=== PATIENT | male | born 1950 | race Caucasian/White ===

== ENCOUNTER 2020-09-27 18:27 | Outpatient (REF) | payer MEDICARE, SELFPAY ==
[2020-10-01 03:11] LABS: Patient Race White; SARS-CoV-2 RNA Undetected (Undetected); SARS-CoV-2 Specimen Source Nasal
== END 2020-09-27 18:47 ==
LOC: NCHCN 18:27
PROVIDERS: PCP Internal Medicine; Visit Provider Internal Medicine
DX: Z20.828 Contact with and (suspected) exposure to other viral communicable diseases (principal)
CPT/HCPCS: U0003

== ENCOUNTER 2021-08-11 13:37 | Outpatient (REF) | payer MEDICARE, SELFPAY ==
[2021-08-12 10:10] LABS: Hepatitis C Ab w Rflx HCV PCR Negative (Negative)
[2021-08-12 10:34] LABS: HIV-1/2 Ag & Ab Screen Negative (Negative)
== END 2021-08-11 13:38 | disposition home or self-care (01) ==
LOC: NCHCN 13:37
PROVIDERS: PCP Internal Medicine; Visit Provider Family Medicine
DX: Z11.3 Encounter for screening for infections with a predominantly sexual mode of transmission (principal); Z00.00 Encounter for general adult medical examination without abnormal findings; Z11.59 Encounter for screening for other viral diseases
CPT/HCPCS: 86803; 87389

== ENCOUNTER 2021-09-05 09:35 | Outpatient (REF) | payer MEDICARE, BC, SELFPAY ==
[2021-09-05 14:36] LABS: Anion Gap 7.5 mmol/L (3-11); BUN 15 mg/dL (7-18); CO2 28.5 mmol/L (21.0-32.0); CREATININE 0.9 mg/dL (0.70-1.30); Calcium 9.1 mg/dL (8.5-10.1); Calculated LDL 158 mg/dL (<100); Chloride 103 mmol/L (98-107); Cholesterol 228 mg/dL (<200); Glucose 298 mg/dL (74-106); HDL Cholesterol 45 mg/dL (40-60); Potassium 4.3 mmol/L (3.5-5.1); Sodium 139 mmol/L (136-145); Triglyceride 129 mg/dL (<150)
== END 2021-09-05 09:36 | disposition home or self-care (01) ==
LOC: NCHCN 09:35
PROVIDERS: PCP Internal Medicine; Visit Provider Family Medicine
DX: E11.9 Type 2 diabetes mellitus without complications (principal); Z00.00 Encounter for general adult medical examination without abnormal findings
CPT/HCPCS: 80048; 80061

== ENCOUNTER 2021-09-15 14:12 | Outpatient (REF) | payer MEDICARE, BC, SELFPAY ==
[2021-09-15 22:54] LABS: COMMENT (LAB VIEW ONLY) 143.12 mg/dL; Microalb ug/mg Crea 116.3 ug/mg Cr
== END 2021-09-15 14:13 | disposition home or self-care (01) ==
LOC: NCHCN 14:12
PROVIDERS: PCP Internal Medicine; Visit Provider Family Medicine
DX: E11.9 Type 2 diabetes mellitus without complications (principal)
CPT/HCPCS: 82043; 82570

== ENCOUNTER 2022-04-22 14:47 | Outpatient (REF) | payer MEDICARE, BC, SELFPAY ==
--- NOTE | 2022-04-22 09:30 | SKI_PTH ---
PATIENT: Brice Lara LOC: [facility] U#:[id number] AGE/SX: 72/M ROOM: RE04/22/[address]: Case Perkins : 1950 BED: DIS: 04/22/2022 SPEC #: [id number] RECD: 04/22/22 17:12 STATUS: [place] REQ #: [id number] CLARISSA: 04/22/22 09:[address]: Case Perkins DEPT: Surgical Specimen RECD BY: Jyotsna Mukherjee ENTERED: 04/22/22 17:12 SP TYPE: CHERRY BOYD DR: Yohan Darling Tissues: 1 - SKIN BIOPSY(SHAVE/PUNCH) Procedures: SKIN LEVEL 4 Comments: [id number]
== END 2022-04-22 14:48 | disposition home or self-care (01) ==
LOC: LBN 14:47
PROVIDERS: PCP Internal Medicine; Visit Provider Family Medicine
DX: L82.1 Other seborrheic keratosis (principal)
CPT/HCPCS: 88305

== ENCOUNTER 2022-04-29 11:21 | Outpatient (REF) | payer MEDICARE, BC, SELFPAY ==
[2022-04-29 14:22] LABS: BUN 17 mg/dL (7-18); CREATININE 0.8 mg/dL (0.70-1.30); Calcium 9.1 mg/dL (8.5-10.1); Calculated LDL 75 mg/dL (<100); Chloride 105 mmol/L (98-107); Cholesterol 141 mg/dL (<200); Glucose 205 mg/dL (74-106); HDL Cholesterol 47 mg/dL (40-60); Potassium 4.6 mmol/L (3.5-5.1); Sodium 143 mmol/L (136-145); Triglyceride 97 mg/dL (<150)
== END 2022-04-29 11:22 | disposition home or self-care (01) ==
LOC: NCHCN 11:21
PROVIDERS: PCP Internal Medicine; Visit Provider Family Medicine
DX: E11.9 Type 2 diabetes mellitus without complications (principal)
CPT/HCPCS: 80048; 80061

== ENCOUNTER 2022-06-22 15:05 | Outpatient (REF) | payer MEDICARE, BC, SELFPAY ==
[2022-06-23 10:20] LABS: Lyme Ab w Rflx to Lyme Confirm Negative (Negative)
[2022-06-24 22:49] LABS: Anaplasma phagocytophilum Negative (Negative); B. miyamotoi PCR Negative (Negative); Babesia divergens/MO-1 Negative (Negative); Babesia duncani Negative (Negative); Babesia microti Negative (Negative); Ehrlichia chaffeensis Negative (Negative); Ehrlichia ewingii/canis Negative (Negative); Ehrlichia muris eauclairensis Negative (Negative)
== END 2022-06-22 15:06 | disposition home or self-care (01) ==
LOC: NCHCN 15:05
PROVIDERS: PCP Internal Medicine; Visit Provider Family Medicine
DX: Z20.9 Contact with and (suspected) exposure to unspecified communicable disease (principal)
CPT/HCPCS: 87798; 86618

== ENCOUNTER 2023-10-13 10:27 | Outpatient (REF) | payer MEDICARE, BC, SELFPAY ==
[2023-10-13 21:57] LABS: Abs Immature Grans 0.03 10^3/uL (0.0-0.06); Absolute Basophil Count 0.03 10^3/uL (0.0-0.2); Absolute Eosinophil Count 0.11 10^3/uL (0.0-0.7); Absolute Lymphocyte Count 1.82 10^3/uL (1.2-3.4); Absolute Monocyte Count 0.73 10^3/uL (0.1-0.8); Absolute Neutrophil Count 6.39 10^3/uL (1.2-6.7); Basophils % 0.3; Eosinophils % 1.2; HCT 47.1 % (40.0-50.0); HGB 15.3 g/dL (13.5-17.5); Immature Grans % 0.3; MCHC 32.5 % (32.0-36.0); MCV 89 fL (80-95); MPV 10.5 fL (8.0-11.0); Neutrophils % 70.2; Platelet Count 260 10^3/uL (130-400); RBC 5.27 10^6/uL (4.36-5.78); RDW 12.8 % (11.8-14.1); WBC 9.11 10^3/uL (4.4-10.8)
[2023-10-13 22:13] LABS: ALT 27 U/L (16-63); AST 12 U/L (15-37); Albumin 3.8 g/dL (3.4-5.0); Alkaline Phosphatase 56 U/L (46-116); BUN 17 mg/dL (7-18); Bilirubin, Total 1.5 mg/dL (0.2-1.0); CREATININE 0.9 mg/dL (0.70-1.30); Calcium 9.8 mg/dL (8.5-10.1); Chloride 104 mmol/L (98-107); Estimated GFR 91.31 (mL/min/1.73m2); Glucose 126 mg/dL (74-106); Potassium 4.4 mmol/L (3.5-5.1); Sodium 140 mmol/L (136-145); Total Protein 7.2 g/dL (6.4-8.2)
[2023-10-13 22:18] LABS: ESR 15 mm/hr (0-20)
[2023-10-13 22:22] LABS: Bacteria Rare HPF (Negative); C & S Indicated? Yes; Casts Negative LPF (Negative); Crystals Negative HPF (Negative); Epithelial Cells Rare HPF (Negative); Mucus Negative (Negative)
== END 2023-10-13 10:28 | disposition home or self-care (01) ==
LOC: NCHCN 10:27
PROVIDERS: PCP Internal Medicine; Visit Provider Family Medicine
DX: I10 Essential (primary) hypertension (principal); Z87.448 Personal history of other diseases of urinary system
CPT/HCPCS: 80053; 85652; 81015; 85025; 87086

== ENCOUNTER → 2023-10-21 01:24 | Outpatient (CLI) | payer MEDICARE, BC, SELFPAY ==
--- NOTE | 2023-10-21 | DI.US_ITS ---
Exam(s) US RENAL EXAM: US RENAL CLINICAL HISTORY: H/O HEMATURIA, Z87.448. TECHNIQUE: Estes scale, color and spectral Doppler were used. COMPARISON: CT ABD/PELVIS WO W CONTRAST from 07/21/2012 FINDINGS: Renal size in cm: Right: 14.2. Left: 13.2. Echogenicity: Normal. Hydronephrosis: No. Cyst or mass: There is a 5 x 4.6 x 5.0 cm cyst in the superior pole of the right kidney. This was pr esent on the prior CT scan from 2011. There are simple cysts seen in the left kidney. The largest m easures 4.3 x 2.1 x 3.6 cm. These were present on the prior examinations from 2011. No follow-up is recommended. Nephrolithiasis: No. Other findings: None. Bladder:Normal. There is again seen a right sided urinary bladder valve reticulin. Prevoid the bladd er diverticulum contained 156 cc. Postvoid bladder diverticulum contained 136 cc. Ureteral jets: Right: Not visualized on the current examination. Left: Not visualized on the current examination. Prevoid vol:750 cc Postvoid vol:343 cc Prostate: 70 cc Renal color flow: Symmetric and within normal limits. IMPRESSION: 1. Persistent simple bilateral renal cysts. No follow-up is recommended. 2. Large right-sided bladder diverticulum is again seen. 3. Large postvoid urinary bladder volume. 4. Enlarged prostate gland. DATA REPOSITORY:
== END ==
PROVIDERS: PCP Internal Medicine; Visit Provider Family Medicine
DX: N28.1 Cyst of kidney, acquired (principal); N32.3 Diverticulum of bladder
CPT/HCPCS: 76770

== ENCOUNTER → 2023-11-09 15:02 | Outpatient (BNVA) | payer MEDICARE, BC, SELFPAY | PROVIDERS: PCP Internal Medicine; Referring Provider Internal Medicine; Visit Provider Urology | DX: R31.0 Gross hematuria (principal) | CPT/HCPCS: 81002; 99205 ==

== ENCOUNTER 2023-11-09 17:28 | Outpatient (REF) | payer MEDICARE, BC, SELFPAY ==
--- NOTE | 2023-11-09 16:00 | PAPNONF_PTH ---
PATIENT: Brice Lara LOC: [facility] U#:[id number] AGE/SX: 73/M ROOM: RE11/09/[address]: Milan Mcmahan MD : 1950 BED: DIS: 11/09/2023 SPEC #: [id number] RECD: 11/09/23 18:15 STATUS: [place] REQ #: [id number] CLARISSA: 11/09/23 16:[address]: Milan Mcmahan DEPT: [facility] Cytology RECD BY: Jyotsna Mukherjee ENTERED: 11/09/23 18:16 SP TYPE: LISET BOYD DR: Yohan Darling Tissues: 1 - BODY FLUID CYTO(SPUTUM/URINE)[facility] Procedures: BODY FLUID CYTO(URINE/SPUTUM) Comments: [id number] (TV = 100 ml) (REFRIGERATED) (30 ml CYTOLYT ADDED TO 50 ml URINE IN 2 CONTAINERS)
== END 2023-11-09 17:29 | disposition home or self-care (01) ==
LOC: LBN 17:28
PROVIDERS: PCP Internal Medicine; Visit Provider Urology
DX: R71.8 Other abnormality of red blood cells (principal)
CPT/HCPCS: 81003; 88104

== ENCOUNTER 2023-12-30 07:23 | Day surgery (SDC) | payer MEDICARE, BC, SELFPAY ==
[2023-12-30] VITALS (7 sets, daily range): BP systolic 127–145; BP diastolic 73–78; PULSE 50–58; RESP 16–17; TEMP 36.1–36.6; O2SAT 96–99; BMI 26.3
[2023-12-30] MEDS: Lactated Ringers 1,000 ML 80 ML IV (07:55)
--- NOTE | 2023-12-30 08:08 | W.PM.HP.N ---
Date of service: 12/30/23 Time of Service: 08:09 Assessment and Plan Assessment and plan (1) Hematuria: Assessment and plan: We will move forward with cystoscopy and bilateral retrograde pyelogram. If we find any suspicious areas in the bladder, we will be prepared to do a transurethral resection. Qualifiers: Hematuria type: gross Qualified Code(s): R31.0 - Gross hematuria History of Present Illness History of Present Illness Chief Complaint: Gross hematuria Narrative: This is a 73-year-old gentleman who has a history of gross painless hematuria. He was evaluated with a renal ultrasound which showed no significant upper tract disease. He does have a fairly large bladder diverticulum on the right side. His gross hematuria has resolved but he has had persistent microscopic hematuria. He presents now for cystoscopy with bilateral retrograde pyelogram to complete his hematuria workup. Review of Systems Narrative: No fevers or chills No vision change or dysphasia Hx diabetes. No thyroid dysfunction Sleep apnea - stopped using CPAP. No shortness of breath, cough or hemoptysis No chest pain or palpitations No nausea, vomiting, hepatitis, ulcers, jaundice No seizures or strokes. Possible diabetic neuropathy No bleeding disorders or anemia No gout PFSH All Active Problems Diabetic neuropathy (Acute) Sleep apnea (Acute) Hypertension (Chronic) Diabetes mellitus (Chronic) Hyperlipidemia (Acute) Medical History Hematuria Diffuse capillary hemangioma Allergic rhinitis Surgical History Repair of umbilical hernia Colonoscopy - MAC (06/02/17) Social History Smoking/Tobacco Use Status: Never Smoking risk assessment performed?: Yes Alcohol Intake: current Alcohol Intake frequency: a few times a week Alcohol type: wine Drug use: Never Substance use type: does not use Details: alcohol: t-7 Housing: house Do you feel safe at home: Yes Do you feel safe in your relationship?: Yes Additional Social history: unable to assess privately Meds Allergies and Home Medications Allergies Allergy/AdvReac Type Severity Reaction Status Date / Time No Known Allergies Allergy Verified 12/30/23 07:44 Home Medications Medication Instructions Recorded Confirmed Type atorvastatin 20 mg tablet 20 mg PO DAILY 06/10/22 12/30/23 History lisinopril 10 mg tablet 10 mg PO DAILY 06/10/22 12/30/23 History metformin 1,000 mg tablet 1,000 mg PO BID 06/10/22 12/30/23 History empagliflozin 10 mg tablet 10 mg PO DAILY 10/22/23 12/28/23 History (Jardiance) sildenafil 100 mg tablet 100 mg PO DAILY PRN 10/22/23 12/30/23 History Exam Const General: cooperative and comfortable Neck Neck: supple Resp Effort & Inspection: normal respiratory effort Auscultation: clear to auscultation bilaterally Cardio Rate: regular rate Rhythm: regular rhythm GI Palpation: soft Neuro General: patient alert, patient awake and patient oriented x3 Results Last Vital Signs Temp 36.1 C L 12/30/23 07:47 Pulse 58 L 12/30/23 07:47 Resp 16 12/30/23 07:47 BP 127/78 12/30/23 07:47 Pulse Ox 97 12/30/23 07:47 Time Spent Time spent with Patient: <40 minutes Time was spent: other
--- NOTE | 2023-12-30 08:19 | W.ANESPRE ---
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 Milan Mcmahan MD Meds Allergies and Home Medications Allergies Allergy/AdvReac Type Severity Reaction Status Date / Time No Known Allergies Allergy Verified 12/30/23 07:44 Home Medication Medication Instructions Recorded atorvastatin 20 mg tablet 20 mg PO DAILY 06/10/22 lisinopril 10 mg tablet 10 mg PO DAILY 06/10/22 metformin 1,000 mg tablet 1,000 mg PO BID 06/10/22 empagliflozin 10 mg tablet 10 mg PO DAILY 10/22/23 (Jardiance) sildenafil 100 mg tablet 100 mg PO DAILY PRN 10/22/23 Current Visit Medications: Current Medications Generic Name Dose Route Start Last Admin Trade Name Freq PRN Reason Stop Dose Admin Ringer's Solution 1,000 mls @ 80 mls/hr 12/30/23 06:00 IV 12/30/23 23:59 INFUSION NIKOS Cefazolin Sodium/Dextrose 2 gm in 50 mls @ 100 mls/hr 12/30/23 06:00 Ancef Duplex IVPB 12/30/23 23:59 PREOP NIKOS IV Miscellaneous Supplies 1 each 12/30/23 06:00 Iv Access IV 12/30/23 23:59 DIRECTED NIKOS Sodium Chloride 0 ml 12/30/23 06:00 Normal Saline Flush 10 Ml Syr IV 12/30/23 23:59 PRN PRN Sodium Chloride 0 ml 12/30/23 06:00 Normal Saline 10 Ml Vial IJ 12/30/23 23:59 DIRECTED PRN Sterile Water 0 ml 12/30/23 06:00 Water,Injection,Sterile 10 Ml Vial IJ 12/30/23 23:59 DIRECTED PRN PFSH Active Problems Active Problems: Problem Status Onset Code Diabetic neuropathy E11.40 Sleep apnea G47.30 Hypertension I10 Diabetes mellitus E11.9 Hyperlipidemia E78.5 Medical History Medical History Hematuria Diffuse capillary hemangioma Allergic rhinitis Medical History Comments:: pt. reports being very sleepy after colonoscopy Surgical History Surgical History Repair of umbilical hernia Colonoscopy - MAC (06/02/17) Tobacco Smoking/Tobacco Use Status: Never Alcohol Alcohol Intake: current Alcohol intake frequency: a few times a week Alcohol type: wine Substance Use Substance use: Never Substance use type: does not use Details: alcohol: t-7 Vital Signs and Lab Results Vital Signs Most Recent Vital Signs in EMR: Most Recent Vital Signs Temp Pulse Resp BP Pulse Ox 36.1 C L 58 L 16 127/78 97 12/30/23 07:47 12/30/23 07:47 12/30/23 07:47 12/30/23 07:47 12/30/23 07:47 Point of Care Results Point of Care Results: Finger Stick Blood Glucose 154 12/30/23 08:09 Lab Results Blood Type / Crossmatch: No Data to Display Complete Blood Count: No Data to Display Complete Metabolic Panel: No Data to Display Liver Function Panel: No Data to Display Coagulation Panel: No Data to Display Cardiac Panel: No Data to Display Arterial Blood Gas: No Data to Display Venous Blood Gas: No Data to Display Pancreas Panel: No Data to Display Thyroid Panel: No Data to Display Infectious Disease: No Data to Display Blood Cultures: No Data to Display Toxicology Panel: No Data to Display Anesthesia Assessment and Plan Anesthesia History Personal History: Delayed Emergence Family History: No Family History of Anesthesia Complications Exercise Tolerance Exercise Tolerance: Metabolic Equivalents>4 Pertinent Negatives Pertinent Negatives: No Symptoms of GERD, No Major Cardiovascular Symptoms or Complaints, No Major Pulmonary Symptoms or Complaints and No History of CVA/TIA Cardiac & Pulmonary Exam Cardiac Exam: Normal S1/S2 Heart Sounds Pulmonary Exam: Clear Bilateral Breath Sounds Implantable Cardiac Device Does patient have a Pacemaker or an ICD?: No Airway Exam Known Difficult Airway: No Mallampati Class: 2 Mouth Opening: Normal (> 3cm) Thyromental Distance: Greater than 3 cm Neck Range of Motion: Full ROM Neck Circumference: Normal Teeth Condition: Loose or Chipped (front left tooth loose ) ASA Classification ASA Score: ASA 2 Emergency Case?: No NPO Status NPO Status: NPO Clears >2 hours, Solids >8 hours Anesthesia Plan Resuscitation Status: Full Code Anesthesia Technique: General Anesthesia Airway Planned: Natural Airway Monitors Used: Standard Monitors
[2023-12-30] MEDS: ceFAZolin 2 GM/50 ML BAG IVPB (09:04)
[2023-12-30] MEDS: Lidocaine 2% Jelly 6 ML SYR (09:07)
[2023-12-30] MEDS: Omnipaque 300 MG/ML 50 ML BTL (09:15)
--- NOTE | 2023-12-30 09:21 | PAPNONF_PTH ---
PATIENT: Brice Lara LOC: [facility] U#:[id number] AGE/SX: 73/M ROOM: RE12/30/[address]: Milan Mcmahan MD : 1950 BED: DIS: 12/30/2023 SPEC #: [id number] RECD: 12/30/23 12:49 STATUS: [place] REMari #: [id number] CLARISSA: 12/30/23 09:[address]: Milan Mcmahan DEPT: [facility] Cytology RECD BY: Jyotsna Mukherjee ENTERED: 12/30/23 12:50 SP TYPE: LISET BOYD DR: Case Perkins Tissues: 1 - BODY FLUID CYTO(SPUTUM/URINE)[facility] Procedures: BODY FLUID CYTO(URINE/SPUTUM) Comments: [id number] (TV = 55 ml, 30 ml CYTOLYT ADDED) (REFRIGERATED)
--- NOTE | 2023-12-30 09:33 | DI.RAD_ITS ---
Exam(s) XR RETROGRADE IN OR EXAM: XR RETROGRADE IN OR CLINICAL HISTORY: HEMATURIA TECHNIQUE: 2D and realtime digital imaging was performed. CONTRAST MATERIAL: Refer to procedure report. COMPARISON: US US RENAL from 10/21/2023 FINDINGS: Fluoroscopy was provided for Dr. Mcmahan during the performance of a retrograde evaluation of the tomas l collecting system. Please refer to the procedure report for complete details. Ka,r=4.88 mGy IMPRESSION: RADIATION DOSE DELIVERED:
--- NOTE | 2023-12-30 09:33 | W.PM.DSUDISC ---
Date of service: 12/30/23 Time of Service: 09:33 Discharge Plan Disposition Patient Disposition: Home Discharge Details Reason For Visit: cystoscopy Attending Provider: Milan Mcmahan Primary Care Provider: Case Perkins Home Meds and New Rx's Prescriptions: No Action atorvastatin 20 mg tablet 20 mg PO DAILY metformin 1,000 mg tablet 1,000 mg PO BID lisinopril 10 mg tablet 10 mg PO DAILY Jardiance 10 mg tablet 10 mg PO DAILY sildenafil 100 mg tablet 100 mg PO DAILY PRN Rx Instructions: administer 30 minutes to 4 hours before activity Discharge Instructions Additional Instructions: followup 1 to 2 weeks to discuss cytology results (can be by phone if easier for patient) Discharge Orders Discharge Orders: Discharge Order (Routine); Ordered 12/30/23 Ordered By: Milan Mcmahan DS: Diagnosis Discharge Diagnosis (1) Hematuria:
--- NOTE | 2023-12-30 09:36 | W.PM.OP ---
Date of service: 12/30/23 Time of Service: 09:36 Operative Note Operative Note DATE OF PROCEDURE: 12/30/23 PRE-OP DIAGNOSIS: Hematuria POST-OP DIAGNOSIS: same Prostatic enlargement PROCEDURE: cystoscopy with bilateral retrograde pyelogram SURGEON: Milan Mcmahan ANESTHESIA TYPE: Local By Surgeon and General:No Airway Refer to Anesthesia Record ESTIMATED BLOOD LOSS: 5 PATHOLOGY: other (urine for cytology) COMPLICATIONS: None Patient was transported to: PACU Patient's condition: stable Implants: none Indications: This is a 73-year-old gentleman who has had episodes of gross painless hematuria previously. He believes the episodes are related to physical activity. He had a renal ultrasound which showed normal upper tracts. A large right-sided bladder diverticulum was identified. He presents now for cystoscopy and bilateral retrograde pyelograms. Findings: trilobar prostatic enlargement heavily trabeculated bladder unable to negotiate scope into right sided diverticulum Procedure Description: The patient was given preoperative antibiotics and brought to the operating room on 12/30/2023. After successful induction of general anesthesia, he was placed in the dorsal lithotomy position. His genitalia was prepped and draped. 2% Xylocaine jelly was instilled into the urethra to act as a local anesthetic. 22 Bah[place]ian cystoscope was passed through the urethra into the bladder. We were initially unable to pass the scope, so we dilated the urethral meatus up to 24 [place]ian before introducing the cystoscope. The urethra and bladder were inspected with a 30 degree lens. The pendulous, bulbar and membranous urethra was all appeared normal with no strictures. The prostatic urethra showed trilobar enlargement with prominent blood vessels present. No active bleeding was seen. The bladder neck was entered and the bladder mucosa was inspected. I was able to visualize both ureteral orifices and cannulate the orifice with a 5 Bahamian access catheter. Retrograde pyelograms were obtained by injecting Omnipaque through the access catheter under fluoroscopic guidance. Distal J hooking of the ureters was identified but no filling defects are seen in the ureters or collecting systems. Both sides drained promptly on a 5-minute drainage film. The remainder the bladder was inspected and it appeared heavily trabeculated with multiple small diverticuli and cellules. The mouth to the large diverticulum was identified, but I was unable to pass my cystoscope into the diverticulum completely to visualize all the mucosa. I then obtained a urine cytology by washing the bladder and diverticulum with saline and collecting the fluid sample. The sample was sent to pathology. The bladder was reinspected with a 70 degree lens. This inspection confirmed the absence of papillary or nodular lesions within the bladder. The bladder was emptied and the cystoscope was withdrawn. Assuming that the urinary cytology is normal, we will expect that his hematuria is related to his prostate and he might actually benefit from a 5 alpha reductase inhibitor to decrease the prostate volume.
--- NOTE | 2023-12-30 09:56 | W.ANESPOSTOP ---
Postoperative Evaluation Date, Time and Location Date Performed: 12/30/23 Time Performed: 09:56 Patient Location: PACU Vital Signs Most Recent Imported Vital Signs: Most Recent Vital Signs Temp Pulse Resp BP Pulse Ox 36.6 C 55 L 16 145/75 H 98 12/30/23 09:49 12/30/23 09:49 12/30/23 09:49 12/30/23 09:49 12/30/23 09:49 Pain Score Most Recent Pain Score: Most Recent Pain Score Pain Level 0 12/30/23 09:49 Assessment Mental Status: Awake (Alert & Oriented to Patient Baseline) Airway and Respiratory Function: Patent airway with normal (patient baseline) respiratory exam Cardiovascular Function: Hemodynamically Stable Hydration Status: Adequately Hydrated Nausea & Vomiting: No Nausea or Vomiting Pain: Pt. Denies Any Pain Peripheral Nerve Block: Patient did not receive a nerve block
--- NOTE | 2023-12-30 10:46 | W.ANESPOSTOP ---
Postoperative Evaluation Date, Time and Location Date Performed: 12/30/23 Time Performed: 10:40 Vital Signs Most Recent Imported Vital Signs: Most Recent Vital Signs Temp Pulse Resp BP Pulse Ox 36.5 C 50 L 16 130/77 96 12/30/23 10:06 12/30/23 10:06 12/30/23 10:06 12/30/23 10:06 12/30/23 10:06 Most Recent Vital Signs Temp Pulse Resp BP Pulse Ox 36.6 C 55 L 16 145/75 H 98 12/30/23 09:49 12/30/23 09:49 12/30/23 09:49 12/30/23 09:49 12/30/23 09:49 Pain Score Most Recent Pain Score: Most Recent Pain Score Pain Level 1 12/30/23 10:06 Assessment Mental Status: Awake (Alert & Oriented to Patient Baseline) Airway and Respiratory Function: Patent airway with normal (patient baseline) respiratory exam Cardiovascular Function: Hemodynamically Stable Hydration Status: Adequately Hydrated Nausea & Vomiting: No Nausea or Vomiting Pain: Pt. Denies Any Pain Peripheral Nerve Block: Patient did not receive a nerve block
[2023-12-30] MEDS: Phenazopyridine 200 MG TAB PO (10:48)
== END 2023-12-30 11:12 | disposition home or self-care (01) ==
PROVIDERS: PCP Family Medicine; Visit Provider Urology
PROC: (CPT 74450; principal; 2023-12-30 08:30)
DX: R31.0 Gross hematuria (principal); N32.3 Diverticulum of bladder; N40.0 Benign prostatic hyperplasia without lower urinary tract symptoms; N32.89 Other specified disorders of bladder
CPT/HCPCS: 52005; 74420; 88104; J0690; J1100; J1885; J2001; J2405; J2704; Q9967

== ENCOUNTER 2024-01-02 03:44 | Emergency (ER) | payer MEDICARE, BC, SELFPAY ==
[2024-01-02 03:49] VITALS: BP 164/94; PULSE 75; RESP 18; TEMP 36.4; O2SAT 98
--- NOTE | 2024-01-02 03:59 | W.ED.GENAD ---
Discharge Plan Disposition Patient Disposition: Home Condition: Good Discharge Details Chief Complaint: Urinary Clinical Impression: Acute urinary obstruction, Hematuria Primary Care Provider: Case Perkins ED Provider: Justo Vernon Home Meds and New Rx's Prescriptions: No Action atorvastatin 20 mg tablet 20 mg PO DAILY metformin 1,000 mg tablet 1,000 mg PO BID lisinopril 10 mg tablet 10 mg PO DAILY Jardiance 10 mg tablet 10 mg PO DAILY Discharge Instructions Instructions: Carlos Catheter Placement and Care (ED) Additional Instructions: Please leave the Carlos catheter in until you are able to follow-up closely with Dr. Mcmahan. Please stay well-hydrated. We have placed a referral with Dr. Mcmahan's office for close follow-up. If you notice any worsening of your symptoms, or any new symptoms such as vomiting, diarrhea, fever, chills, shortness of breath, chest pain, numbness, weakness, or fainting , please return immediately to the emergency department for reevaluation. Please follow up with your primary care provider as soon as possible for reassessment and reevaluation. As always, it was a pleasure participating in your medical care today. Referrals: Milan Mcmahan MD [ [facility]FF PHYSICIAN] - [facility] General Date/Time Provider Initiated Documentation: 01/02/24 03:45. HPI Narrative: This is a pleasant 73-year-old male with a past medical history of hypertension, high cholesterol, type 1 diabetes, who presents today for evaluation of difficulty urinating. 3 days ago the patient had cystoscopy for hematuria. Diverticuli was noted, but no other significant abnormality. He did have notable vascularity on cystoscopy but no other abnormalities otherwise. Patient was discharged postprocedure, and he did well but began having some small clots and some mild hematuria after the fact. This continued until tonight where it notably worsened and he has not been able to urinate for the past 4 to 6 hours of any significant volume. He does pee frequently throughout the night, and has not been able to do this. He admits to sensation of significant suprapubic pressure. No other complaints at this time. Related Data Home Medications Medication Instructions Recorded Confirmed atorvastatin 20 mg tablet 20 mg PO DAILY 06/10/22 01/02/24 lisinopril 10 mg tablet 10 mg PO DAILY 06/10/22 01/02/24 metformin 1,000 mg tablet 1,000 mg PO BID 06/10/22 01/02/24 empagliflozin 10 mg tablet 10 mg PO DAILY 10/22/23 01/02/24 (Jardiance) Allergies Allergy/AdvReac Type Severity Reaction Status Date / Time No Known Allergies Allergy Verified 01/02/24 03:59 General Stated Complaint: Urinary SRINIVASAN: 3 Review of Systems All systems reviewed & are unremarkable except as noted in HPI and below Exam Narrative Exam Narrative: 1.Const: Well-nourished, Well-developed, appearing stated age 2.Eyes: PERRL, no conjunctival injection, and symmetrical lids. 3.ENT: Atraumatic external nose and ears. Moist MM. Neck: Symmetric, trachea midline, No thyromegaly. 4.CVS: +S1/S2, No murmurs or gallops. Peripheral pulses 2+ and equal in all extremities. Brisk capillary refill in all extremities. 5.RESP: Unlabored respiratory effort. Clear to auscultation bilaterally. No wheezes rales or rhonchi 6.GI: Soft, Nontender/Nondistended, No hepatosplenomegaly. No guarding or rebound. Mild suprapubic pressure and palpable volume of the bladder is noted. Small amount of blood at the urethral meatus. No penile or scrotal tenderness. 7.MSK: Normocephalic/Atraumatic, Extremities w/o deformity or ttp No cyanosis or clubbing, Normal movement of all extremities 8.Skin: Warm, Dry. No rashes or lesions. 9.Neuro: electrical superintendent II-XII grossly intact. Sensation grossly intact, no focal neurologic deficits. 10.Psych: (AAO) x3. Appropriate mood and affect Course Vital Signs Vital signs: Vital Signs Temperature 36.4 C L 01/02/24 03:49 Pulse 75 01/02/24 03:49 Respiratory Rate 18 01/02/24 03:49 Pulse Oximetry 98 01/02/24 03:49 Temperature 36.4 C L 01/02/24 03:49 Pulse 75 01/02/24 03:49 Respiratory Rate 18 01/02/24 03:49 Respiratory Effort Normal 01/02/24 03:55 Pulse Oximetry 98 01/02/24 03:49 Oxygen Delivery Method Room Air 01/02/24 03:49 Oxygen Flow Rate 0 01/02/24 03:49 Pain Level 5 01/02/24 03:49 Medical Decision Making This is a pleasant 73-year-old male with a past medical history of hypertension, high cholesterol, type 1 diabetes, who presents today for evaluation of difficulty urinating. 3 days ago the patient had cystoscopy for hematuria. Diverticuli was noted, but no other significant abnormality. He did have notable vascularity on cystoscopy but no other abnormalities otherwise. Patient was discharged postprocedure, and he did well but began having some small clots and some mild hematuria after the fact. This continued until tonight where it notably worsened and he has not been able to urinate for the past 4 to 6 hours of any significant volume. He does pee frequently throughout the night, and has not been able to do this. He admits to sensation of significant suprapubic pressure. No other complaints at this time. Exam demonstrates well-appearing male, mild hypertension. Palpable bladder. Concern for obstruction secondary to clot on the prostate. Discussed risk and benefits of Carlos catheter, patient is consented for catheterization. Will place catheter, monitor closely and reassess. 4:30 AM Carlos catheter was placed without complication by nursing staff. Patient tolerated this well. 650 cc were removed of blood-tinged urine. Catheter was clamped, after a pause, it was restarted again for a total of just under a liter of urinary output. Leg bag was placed for the patient. He had complete resolution of his pressure symptoms. We will leave the Carlos catheter in place for the patient. Education was performed for use of the Carlos catheter leg bag. Will place referral with Dr. Mcmahan for close follow-up this week. Discussed red flags for which to return. I have extensively reviewed the treatment plan and discharge instructions with the patient. I have addressed all patient concerns at this time. The patient was made aware of what symptoms to monitor for that would warrant a return to the emergency department. Discussed the plan with the patient, they demonstrate verbal understanding and agreement with our assessment and plan at this time. The documentation in this chart was dictated using [employer] dictation software. Please excuse any dictation errors. Quality:SDOH Health Related Social Needs: No Data to Display PFSH All Active Problems (Updated 01/02/24 @ 04:28 by Justo Vernon DO) Hematuria (Acute) Acute urinary obstruction (Acute) Diabetic neuropathy (Acute) Sleep apnea (Acute) Hypertension (Chronic) Diabetes mellitus (Chronic) Hyperlipidemia (Acute) Medical History Hematuria Diffuse capillary hemangioma Allergic rhinitis Surgical History Repair of umbilical hernia Colonoscopy - MAC (06/02/17) Social History Smoking/Tobacco Use Status: Never Smoking risk assessment performed?: Yes Alcohol Intake: current Alcohol Intake frequency: a few times a week Alcohol type: wine Drug use: Never Substance use type: does not use Details: alcohol: t-7 Housing: house Do you feel safe at home: Yes Do you feel safe in your relationship?: Yes Additional Social history: unable to assess privately
--- NOTE | 2024-01-02 04:27 | NUR.NOTE ---
Referral faxed to [facility] Urology to f/u week of 01/03/24 for hematuria, urinary obstruction, simon catheter in place.Nursing Note:
--- NOTE | 2024-01-02 04:47 | NUR.NOTE ---
PT was provided with leg bag and educated on care. PT verbalized understanding. PT states that he feels confident that he can care for the catheter at home. Nursing Note:
[2024-01-02 04:58] VITALS: BP 157/87; PULSE 74; RESP 18; O2SAT 95
== END 2024-01-02 05:07 | disposition home or self-care (01) ==
PROVIDERS: Emergency Provider Student in an Organized Health Care Education/Training Program; PCP Family Medicine
DX: T83.011A Breakdown (mechanical) of indwelling urethral catheter, initial encounter (principal); R31.9 Hematuria, unspecified; N13.9 Obstructive and reflux uropathy, unspecified; E11.9 Type 2 diabetes mellitus without complications; I10 Essential (primary) hypertension
CPT/HCPCS: 51702; 99283

== ENCOUNTER 2024-01-02 15:53 | Emergency (ER) | payer MEDICARE, BC, SELFPAY ==
[2024-01-02 15:58] VITALS: BP 146/88; PULSE 74; RESP 17; TEMP 37; O2SAT 96
[2024-01-02 16:53] LABS: Bilirubin Negative (Negative); Blood Large (Negative); Clarity Cloudy (Clear); Glucose >=1000 mg/dL (Negative); Ketones Negative (Negative); Leukocyte Esterase Negative (Negative); Nitrite Negative (Negative); Specific Gravity 1.015 (1.005-1.025); Urobilinogen 0.2 mg/dL (Up to 0.2); pH 6.5 (5-8)
[2024-01-02 17:00] VITALS: BP 146/88; PULSE 74; RESP 17; TEMP 37; O2SAT 96
[2024-01-02 17:13] LABS: RBC >50 HPF (0-2)
[2024-01-02 17:14] LABS: C & S Indicated? No
[2024-01-02 18:18] VITALS: BP 146/88; PULSE 74; RESP 17; TEMP 37; O2SAT 96
--- NOTE | 2024-01-02 18:24 | W.ED.GENAD ---
Discharge Plan Disposition Patient Disposition: Home Condition: Stable Discharge Details Clinical Impression: Malfunction of indwelling urinary catheter Primary Care Provider: Case Perkins ED Provider: Jyotsna hSerman Home Meds and New Rx's Prescriptions: Continued atorvastatin 20 mg tablet 20 mg PO DAILY metformin 1,000 mg tablet 1,000 mg PO BID lisinopril 10 mg tablet 10 mg PO DAILY Jardiance 10 mg tablet 10 mg PO DAILY Discharge Instructions Additional Instructions: Follow-up with Dr. Mcmahan as discussed to have Carlos catheter rechecked and potentially removed next week If there is decreased flow, you may try to irrigate as we showed you in the emergency department, this is unsuccessful, please return for reassessment or call Dr. Mcmahan Use your leg bag while you are up and about and your bed bag while you are supine or sleeping Please return with fever, chills, or she develop new or worsening complaints Referrals: Case Perkins MD [Primary Care Provider] - Milan Mcmahan MD [ [facility] STAFF PHYSICIAN] - HPI General Date/Time Provider Initiated Documentation: 01/02/24 15:58. HPI Narrative: This 73-year-old male presents with report of obstructed Carlos catheter. Urine flowing around the catheter. States he had a catheter placed this morning status post cystoscopy several days prior to arrival. Denies clots. Denies fever. Otherwise reportedly feels well. Related Data Home Medications Medication Instructions Recorded Confirmed atorvastatin 20 mg tablet 20 mg PO DAILY 06/10/22 01/02/24 lisinopril 10 mg tablet 10 mg PO DAILY 06/10/22 01/02/24 metformin 1,000 mg tablet 1,000 mg PO BID 06/10/22 01/02/24 empagliflozin 10 mg tablet 10 mg PO DAILY 10/22/23 01/02/24 (Jardiance) Allergies Allergy/AdvReac Type Severity Reaction Status Date / Time No Known Allergies Allergy Verified 01/02/24 03:59 General Stated Complaint: Urinary SRINIVASAN: 4 Course Vital Signs Vital signs: Vital Signs Temperature 37 C 01/02/24 15:58 Pulse 74 01/02/24 15:58 Respiratory Rate 17 01/02/24 15:58 Blood Pressure 146/88 H 01/02/24 15:58 Pulse Oximetry 96 01/02/24 15:58 Temperature 37 C 01/02/24 18:18 Temperature Source Temporal Artery Scan 01/02/24 17:00 Pulse 74 01/02/24 18:18 Respiratory Rate 17 01/02/24 18:18 Respiratory Effort Normal 01/02/24 17:00 Blood Pressure 146/88 H 01/02/24 18:18 Blood Pressure Position Sitting 01/02/24 17:00 Pulse Oximetry 96 01/02/24 18:18 Oxygen Delivery Method Room Air 01/02/24 17:00 Oxygen Flow Rate 0 01/02/24 15:58 Pain Level 0 01/02/24 17:00 Lab/Test Results Lab/Test Results: Laboratory Tests Range/Units 01/02/24 16:38 Urine Color (Yellow) Red Urine Clarity (Clear) Cloudy Urine pH (5-8) 6.5 Ur Specific [place] (1.005-1.025) 1.015 Urine Protein (Neg-Trace) mg/dL 30 H Urine Ketones (Negative) mg/dL Negative Urine Blood (Negative) Large H Urine Nitrite (Negative) Negative Urine Bilirubin (Negative) Negative Urine Urobilinogen (Up to 0.2) mg/dL 0.2 Ur Leukocyte Esterase (Negative) Negative Urine RBC (0-2) HPF >50 H Urine WBC Not Applicable Ur Epithelial Cells Not Applicable Urine Crystals Not Applicable Urine Bacteria Not Applicable Urine Mucus Not Applicable Ur Culture Indicated? No Urine Glucose (Negative) mg/dL >=1000 H Medical Decision Making 73-year-old male presents with obstructed Carlos catheter for evaluation, Carlos was placed this morning, patient is afebrile and nontoxic, urinalysis with blood, no visible clots pink discoloration, flowing freely after Carlos catheter care, ambulatory without any residual malfunction, request discharge home at this time, no evidence of infection, will follow-up with Dr. Mcmahan as scheduled appointment this week No abdominal tenderness, no CVA tenderness, afebrile and nontoxic alert and oriented x 4, return precautions reviewed and patient expressed understanding Quality:SDOH Health Related Social Needs: No Data to Display PFSH All Active Problems (Updated 01/02/24 @ 17:32 by ANNETTE Sewell) Malfunction of indwelling urinary catheter (Acute) Hematuria (Acute) Acute urinary obstruction (Acute) Diabetic neuropathy (Acute) Sleep apnea (Acute) Hypertension (Chronic) Diabetes mellitus (Chronic) Hyperlipidemia (Acute) Medical History Hematuria Diffuse capillary hemangioma Allergic rhinitis Surgical History Repair of umbilical hernia Colonoscopy - MAC (06/02/17) Social History Smoking/Tobacco Use Status: Never Smoking risk assessment performed?: Yes Alcohol Intake: current Alcohol Intake frequency: a few times a week Alcohol type: wine Drug use: Never Substance use type: does not use Details: alcohol: t-7 Housing: house Do you feel safe at home: Yes Do you feel safe in your relationship?: Yes Additional Social history: unable to assess privately
== END 2024-01-02 18:02 | disposition home or self-care (01) ==
PROVIDERS: Emergency Provider Physician Assistant; PCP Family Medicine
DX: T83.098A Other mechanical complication of other urinary catheter, initial encounter (principal); R33.9 Retention of urine, unspecified; I10 Essential (primary) hypertension; E78.5 Hyperlipidemia, unspecified; E11.40 Type 2 diabetes mellitus with diabetic neuropathy, unspecified; Z79.84 Long term (current) use of oral hypoglycemic drugs
CPT/HCPCS: 51702; 99283; 81003; 81015

== ENCOUNTER → 2024-01-04 08:32 | Outpatient (BNVA) | payer MEDICARE, BC, SELFPAY | PROVIDERS: PCP Family Medicine; Referring Provider Family Medicine; Visit Provider Urology | DX: R31.9 Hematuria, unspecified (principal) | CPT/HCPCS: 99213 ==

== ENCOUNTER → 2024-01-14 11:01 | Outpatient (BNVA) | payer MEDICARE, BC, SELFPAY | PROVIDERS: PCP Family Medicine; Referring Provider Family Medicine; Visit Provider Urology | DX: N40.1 Benign prostatic hyperplasia with lower urinary tract symptoms (principal); R31.0 Gross hematuria | CPT/HCPCS: 99214 ==

== ENCOUNTER 2024-01-14 12:39 | Outpatient (CLI) | payer MEDICARE, BC, SELFPAY ==
[2024-01-14 22:51] LABS: PSA, Diagnostic 9.3 ng/mL (<=6.5)
== END 2024-01-14 12:40 | disposition home or self-care (01) ==
LOC: LBO 12:39
PROVIDERS: PCP Family Medicine; Visit Provider Urology
DX: R31.0 Gross hematuria (principal)
CPT/HCPCS: 36415; 99214; 84153

== ENCOUNTER 2024-08-01 11:21 | Outpatient (CLI) | payer MEDICARE, BC, SELFPAY ==
--- OUTSIDE RECORDS SUMMARY | 2024-08-01 11:29 | XMS_ITS | Encounter Summary ---
Author Organization [facility] Address [address] [place] [address] Care Team Providers Care Environmental Journalist Name Role Phone Yohan Darling MD Primary Care Provider [phone] Encounter Details Date Type Department Care Team (Late st Contact Info) Description 01/14/2024 Lab Requisition [facility] Pathology & Laboratory Medicine - [facility] [address], [place] [id number] Outr Resulting Lab, Provider Social History Tobacco Use Types Packs/Day Years Used Date Smoking Tobacco: Never Assessed Sex and Gender Information Value Date Recorded Sex Assigned at Not on file Gender Identity Not on file Sexual Orientation Not on file documented as of this encounter Plan of Treatment Not on file documented as of this encounter Procedures Procedure Name Priority Date/Time Associated Diagnosis Comments PSA TOTAL, DIAGNOSTIC Routine 01/14/2024 12:03 EST documented in this encounter Results * (ABNORMAL) PSA TOTAL, DIAGNOSTIC (01/14/2024 12:03 EST) PSA 9.3(H) <=6.5 ng/mL 01/14/2024 22:47 EST [facility] Blood VENOUS BLOOD / Unknown 01/14/2024 12:03 EST 01/14/2024 21:39 EST Narrative [facility] - 01/14/2024 22:47 EST NOTE: Serum PSA concentration should not be interpreted as absolute evidence for the presence or absence of malignant disease. Assayed on Siemens ADVIA Centaur XPT using chemiluminescent technology.??Values obtained by using different assay methods cannot be used interchangeably. Provider Outr Resulting Lab CHEMISTRY & BLOOD GAS ORDERABLES [facility] [address] [place], [place] [address] documented in this encounter Visit Diagnoses Not on filedocumented in this encounter Care Teams Environmental Journalist Relationship Specialty Start Date End Date Yohan Darling MD [address] [place] [address] PCP - General 08/10/12 documented as of this encounter
--- OUTSIDE RECORDS SUMMARY | 2024-08-01 11:29 | XMS_ITS | Encounter Summary ---
Author Organization [facility] Address [address] [place] [address] Care Team Providers Care Pipe And Test Supervisor Name Role Phone Yohan Darling MD Primary Care Provider [phone] Encounter Details Date Type Department Care Team (Late st Contact Info) Description 12/31/2023 Lab Requisition [facility] Pathology & Laboratory Medicine - [facility] [address] [place] [address] Milan Mcmahan MD [address] [place] [address] [place] [phone] Gross hematuria Social History Tobacco Use Types Packs/Day Years Used Date Smoking Tobacco: Never Assessed Sex and Gender Information Value Date Recorded Sex Assigned at Not on file Gender Identity Not on file Sexual Orientation Not on file documented as of this encounter Plan of Treatment Not on file documented as of this encounter Procedures Procedure Name Priority Date/Time Associated Diagnosis Comments NON AMMUNITION SPECIALIST/FNA CYTOLOGY Today 12/30/2023 9:21 EST Gross hematuria documented in this encounter Results * NON AMMUNITION SPECIALIST/FNA CYTOLOGY (12/30/2023 9:21 EST) Note to Patient The following pathology results have been interpreted by your pathologist and may be available to you before your health provider has had the opportunity to review them. Please allow time for your provider to receive these results and explore management options, if applicable. 12/31/2023 17:32 EST [facility] Final Diagnosis A. URINE, CATHETERIZED, CYTOLOGIC EVALUATION: - Negative for high grade urothelial carcinoma. 12/31/2023 17:32 [facility] Attestation There was significant resident/patricia oseguera involvement in the diagnostic evaluation of this case. By the signature below, the attending physician certifies that they have personally conducted a gross and/or microscopic examination of the described specimens and rendered or confirmed the above diagnosis. 12/31/2023 17:32 [facility] at 1732 Clinical History R31.0 GROSS HEMATURIA 12/31/2023 17:32 [facility] Gross Description A. 85cc's of clear yellow fluid (Cytolyt added) were received and processed by selective cellular enhancement technique. 12/31/2023 17:32 [facility] Resident/Patricia w: Kaylee Chisholm MD 12/31/2023 17:32 [facility] Performing Lab [facility] 12/31/2023 17:32 [facility] Scanned Images 12/31/2023 17:32 [facility] Urine URINE SPECIMEN COLLECTION, CATHETERIZED / Unknown 12/30/2023 9:21 EST 12/31/2023 6:27 EST Milan Mcmahan MD PATHOLOGY ORDERAB LES [facility] [address] [place] [address] documented in this encounter Visit Diagnoses Diagnosis Gross hematuria documented in this encounter Care Teams Pipe And Test Supervisor Relationship Specialty Start Date End Date Yohan Darling MD [address] [place] [id number] PCP - General 08/10/12 documented as of this encounter
--- OUTSIDE RECORDS SUMMARY | 2024-08-01 11:29 | XMS_ITS | Encounter Summary ---
Author Organization [facility] Address [address] [place] [address] Care Team Providers Care Resident Care Director Name Role Phone Yohan Darling MD Primary Care Provider [phone] Encounter Details Date Type Department Care Team (Late st Contact Info) Description 04/22/2022 Lab Requisition [facility] Pathology & Laboratory Medicine - [facility] [address] [place] [address] Case Perkins MD [address] [place], [place] [id number] Encounter for other general examination Social History Tobacco Use Types Packs/Day Years Used Date Smoking Tobacco: Never Assessed Sex and Gender Information Value Date Recorded Sex Assigned at Not on file Gender Identity Not on file Sexual Orientation Not on file documented as of this encounter Plan of Treatment Not on file documented as of this encounter Procedures Procedure Name Priority Date/Time Associated Diagnosis Comments SURGICAL PATHOLOGY Today 04/22/2022 9: 30 EDT Encounter for other general examination documented in this encounter Results * SURGICAL PATHOLOGY (04/22/2022 9:30 EDT) Note to Patient The following pathology results have been interpreted by your pathologist and may be available to you before your health provider has had the opportunity to review them. Please allow time for your provider to receive these results and explore management options, if applicable. 04/24/2022 11:[address] [facility] Final Diagnosis A. SKIN OF FACE, LEFT, EXCISIONAL BIOPSY: - Seborrheic keratosis. - Margins negative for seborrheic keratosis. 04/24/2022 11:25 [facility] Attestation By the signature below, the attending physician certifies that they have 1) personally conducted a gross and/or microscopic examination of the described specimen(s), and/or personally interpreted the results of laboratory testing of the described specimen(s), and 2) personally rendered or confirmed the above diagnosis. 04/24/2022 11:25 [facility] at 1125 Microscopic Description The stratum corneum is thickened by compact and basketweave orthokeratosis with formation of horn pseudocysts. The epidermis is acanthotic with formation of broad and anastomosing trabeculae. The trabeculae are composed of basaloid keratinocytes with round uniform nuclei. The keratinocytes have a variable amount of melanin pigment. 04/24/2022 11:25 [facility] Clinical History Left cheek lesion excisional biopsy 04/24/2022 11:25 [facility] Gross Description A. Received in formalin labelled with proper patient identification (initials S, H) and L face is an unoriented elliptical excision of orona hair-bearing skin (1.1 x 0.6 cm and is excised to a depth of 0.3 cm). There is a central irregular orona-white granular papule that measures 0.5 x 0.3 cm. The margins are inked blue. The specimen is serially sectioned and entirely submitted as A1 3 central sections and A2 2 tips, reverse en face. RADHA SAENZ 04/23/2022 13:29 04/24/2022 11:25 [facility] Performing Lab [facility] 04/24/2022 11:25 [facility] Scanned Images 04/24/2022 11:25 [facility] Tissue TISSUE SPECIMEN FROM SKIN / Unknown 04/22/2022 9:30 EDT 04/22/2022 22:55 EDT Case Perkins MD PATHOLOGY ORDERABLES [facility] [address] [place] [address] documented in this encounter Visit Diagnoses Diagnosis Encounter for other general examination documented in this encounter Care Teams Resident Care Director Relationship Specialty Start Date End Date Yohan Darling MD [address] [place] [id number] PCP - General 08/10/12 documented as of this encounter
--- OUTSIDE RECORDS SUMMARY | 2024-08-01 11:29 | XMS_ITS | Referral Summary ---
Author Organization [facility] Address [address] [place] [address] Care Team Providers Care Shuttle Hand Name Role Phone Yohan Darling MD Primary Care Provider [phone] Social History Tobacco Use Types Packs/Day Years Used Date Smoking Tobacco: Never Assessed Sex and Gender Information Value Date Recorded Sex Assigned at Not on file Gender Identity Not on file Sexual Orientation Not on file Plan of Treatment Not on file Procedures Procedure Name Priority Date/Time Associated Diagnosis Comments HEPATITIS C AB W REFLEX TO HCV RNA BY PCR Routine 08/11/2021 8:50 EDT from Last 3 Months or Most Recently Relevant to Health Maintenance Results * HEPATITIS C AB W REFLEX TO HCV RNA BY PCR (08/11/2021 8:50 EDT) Hep C Antibody Negative Negative 08/12/2021 10:04 EDT [facility] Blood VENOUS BLOOD / Unknown 08/11/2021 8:50 EDT 08/11/2021 21:37 EDT Provider Outr Resulting Lab CHEMISTRY & BLOOD GAS ORDERABLES [facility] [address] [place] [address] from Last 3 Months or Most Recently Relevant to Health Maintenance Care Teams Shuttle Hand Relationship Specialty Start Date End Date Yohan Darling MD [address] [place] [phone] PCP - General 08/10/12
--- OUTSIDE RECORDS SUMMARY | 2024-08-01 11:29 | XMS_ITS | Encounter Summary ---
Author Organization [facility] Address [address] [place] [address] Care Team Providers Care Auditor Supervisor Name Role Phone Yohan Darling MD Primary Care Provider [phone] Encounter Details Date Type Department Care Team (Late st Contact Info) Description 11/10/2023 Lab Requisition [facility] Pathology & Laboratory Medicine - [facility] [address] [place] [address] Milan Mcmahan MD [address] [place] [address] [place] [phone] Encounter for other general examination Social History [...] Name Priority Date/Time Associated Diagnosis Comments NON ENVIRONMENTAL ENGINEERING INTERN/FNA CYTOLOGY Today 11/09/2023 16:00 EST Encounter for other general examination documented in this encounter Results * NON ENVIRONMENTAL ENGINEERING INTERN/FNA CYTOLOGY (11/09/2023 16:00 EST) Note to Patient The following pathology results have been interpreted by your pathologist and may be available to you before your health provider has had the opportunity to review them. Please allow time for your provider to receive these results and explore management options, if applicable. 11/10/2023 15:39 EST [facility] Final Diagnosis A. URINE, VOIDED, CYTOLOGIC EVALUATION: - Negative for high grade urothelial carcinoma. - Abundant red blood cells present. 11/10/2023 15:39 [facility] Attestation There was significant resident/patricia w involvement in the diagnostic evaluation of this case. By the signature below, the attending physician certifies that they have personally conducted a gross and/or microscopic examination of the described specimens and rendered or confirmed the above diagnosis. 11/10/2023 15:39 [facility] at 1539 Clinical History Gross hematuria 11/10/2023 15:39 [facility] Gross Description A. 160cc's of clear yellow fluid (Cytolyt added) were received and processed by selective cellular enhancement technique. 11/10/2023 15:39 [facility] Resident/Patricia w: Kaylee Chisholm MD 11/10/2023 15:39 [facility] Performing Lab [facility] 11/10/2023 15:39 [facility] Scanned Images 11/10/2023 15:39 [facility] Urine URINE SPECIMEN FROM URETHRA / Unknown 11/09/2023 16:00 EST 11/10/2023 6:29 EST Milan Mcmahan MD PATHOLOGY ORDERAB LES [facility] [address] [place] [address] documented in this encounter Visit Diagnoses Diagnosis Encounter for other general examination documented in this encounter Care Teams Auditor Supervisor Relationship Specialty Start Date End Date Yohan Darling MD [address] [place] [id number] PCP - General 08/10/12 documented as of this encounter
--- OUTSIDE RECORDS SUMMARY | 2024-08-01 11:29 | XMS_ITS | Data Portability ---
Author Organization [place] - [facility] Address [address] [place] [address] Assessment No assessment recorded. Plan of Treatment Reminders Order Date Submit Date Provider Last Modified By Organization Details Last Modified Time Details Appointments Annual Chronic Care (65+) 30 2024 02:10P M Not available Not available Not available Lab urinalysi s, microscop ic 2022 023 [facility], [address] [place] [address], [phone], 10/19/2023 16:23:55 ESR (erythroc yte sedimenta tion rate), blood 2022 023 [facility] (Registration ), [address] [place] [address] [place], [address], 10/14/2023 09:15:38 CMP, serum or plasma 2022 023 [facility] (Registration ), [address] [place] [address] [place], [address], 10/13/2023 22:50:13 CBC w/ auto diff 2022 023 [facility] (Registration ), [address] [place] [address] [place], [address], 10/13/2023 22:50:02 HbA1c (hemoglob in A1c), blood [address] Laboratory (Registration ), [address] [place] [address] [place], [address], 10/26/2023 13:23:41 hemoglobi n A1C, fingersti ck 2023 024 [facility], [address] [place] [address], [phone], 04/12/2024 14:51:02 Referral None recorded. Procedures None recorded. Surgeries None recorded. Imaging None recorded. Medication Orders prednison e 50 mg tablet 2023 024 [facility], [address] [place], [address], 04/12/2024 14:25:55 tramadol 50 mg tablet 2023 024 [facility], [address] [place], [address], 04/12/2024 14:34:48 Patient TargetsNo targets recorded. Patient Instructions Encounter Date Encounter Id Patient Instructions Last Modified By Organization Details Last Modified Time 02/22/2024 [id number] pain medicine: care instructions jdege Not available 02/22/2024 10:22:49 04/12/2024 [id number] learning about healthy weight jdege Not available 04/12/2024 14:51:02 Reason for Referral Urologist Referral for Histo ry of hematuria Referring Physician: Case Cisneros, Family Medicine, Encounter Date: 10/19/2023 Results Created Date Observation Date Name Description Value Unit Range Abnormal Flag Note LastModifiedBy Organization Detail LastModifiedTime 10/13/2010/13/2023 COMPL ETE BLOOD COUNT W/DIF F WBC 9.11 10_3/ uL 4.4-10 .8 normal Not Available [address] [place], [address] 10/13/2023 22:50:02 10/13/20 23 10/13/2023 COMPL ETE BLOOD COUNT W/DIF F RBC 5.27 10_6/ uL 4.36-5 .78 normal Not Available [address] [place], [address] 10/13/2023 22:50:02 10/13/20 23 10/13/2023 COMPL ETE BLOOD COUNT W/DIF F HGB 15.3 g/dL 13.5-1 7.5 normal Not Available [address] [place], [address] 10/13/2023 22:50:02 10/13/20 23 10/13/2023 COMPL ETE BLOOD COUNT W/DIF F HCT 47.1 % 40.0-5 0.0 normal Not Available [address] [place], [address] 10/13/2023 22:50:02 10/13/20 23 10/13/2023 COMPL ETE BLOOD COUNT W/DIF F MCV 89 fL 80-95 normal Not Available [address] [place], [address] 10/13/2023 22:50:02 10/13/20 23 10/13/2023 COMPL ETE BLOOD COUNT W/DIF F MCH 29.0 pg 27.0-3 3.0 normal Not Available [address] [place], [address] 10/13/2023 22:50:02 10/13/20 23 10/13/2023 COMPL ETE BLOOD COUNT W/DIF F MCHC 32.5 % 32.0-3 6.0 normal Not Available [address] [place], [address] 10/13/2023 22:50:02 10/13/20 23 10/13/2023 COMPL ETE BLOOD COUNT W/DIF F RDW 12.8 % 11.8-1 4.1 normal Not Available [address] [place], [address] 10/13/2023 22:50:02 10/13/20 23 10/13/2023 COMPL ETE BLOOD COUNT W/DIF F platelet count 260 10_3/ uL 130-40 0 normal Not Available [address] [place], [address] 10/13/2023 22:50:02 10/13/20 23 10/13/2023 COMPL ETE BLOOD COUNT W/DIF F MPV 10.5 fL 8.0-11 .0 normal Not Available [address] [place], [address] 10/13/2023 22:50:02 10/13/20 23 10/13/2023 COMPL ETE BLOOD COUNT W/DIF F neutrophils % 70.2 Not Available [address] [place], [address] 10/13/2023 22:50:02 10/13/20 23 10/13/2023 COMPL ETE BLOOD COUNT W/DIF F lymphocytes % 20.0 Not Available [address] [place], [address] 10/13/2023 22:50:02 10/13/20 23 10/13/2023 COMPL ETE BLOOD COUNT W/DIF F monocytes % 8.0 Not Available [address] [place], [address] 10/13/2023 22:50:02 10/13/20 23 10/13/2023 COMPL ETE BLOOD COUNT W/DIF F eosinophils % 1.2 Not Available [address] [place], [address] 10/13/2023 22:50:02 10/13/20 23 10/13/2023 COMPL ETE BLOOD COUNT W/DIF F basophils % 0.3 Not Available [address] [place], [address] 10/13/2023 22:50:02 10/13/20 23 10/13/2023 COMPL ETE BLOOD COUNT W/DIF F immature grans % 0.3 Not Available [address] [place], [address] 10/13/2023 22:50:02 10/13/20 23 10/13/2023 COMPL ETE BLOOD COUNT W/DIF F nucleated RBC 0.0 % 0.0-0. 3 normal Not Available [address] [place], [address] 10/13/2023 22:50:02 10/13/20 23 10/13/2023 COMPL ETE BLOOD COUNT W/DIF F absolute neutrophil count 6.39 10_3/ uL 1.2-6. 7 normal Not Available [address] [place], [address] 10/13/2023 22:50:02 10/13/20 23 10/13/2023 COMPL ETE BLOOD COUNT W/DIF F absolute lymphocyte count 1.82 10_3/ uL 1.2-3. 4 normal Not Available [address] [place], [address] 10/13/2023 22:50:02 10/13/20 23 10/13/2023 COMPL ETE BLOOD COUNT W/DIF F absolute monocyte count 0.73 10_3/ uL 0.1-0. 8 normal Not Available [address] [place], [address] 10/13/2023 22:50:02 10/13/20 23 10/13/2023 COMPL ETE BLOOD COUNT W/DIF F absolute eosinophil count 0.11 10_3/ uL 0.0-0. 7 normal Not Available [address] [place], [address] 10/13/2023 22:50:02 10/13/20 23 10/13/2023 COMPL ETE BLOOD COUNT W/DIF F absolute basophil count 0.03 10_3/ uL 0.0-0. 2 normal Not Available [address] [place], [address] 10/13/2023 22:50:02 10/13/20 23 10/13/2023 COMPR EHENS ROSEANNE METAB OLIC PANEL calcium 9.8 mg/dL 8.5-10 .1 normal Not Available [address] [place], [address] 10/13/2023 22:50:13 10/13/20 23 10/13/2023 COMPR EHENS ROSEANNE METAB OLIC PANEL glucose 126 mg/dL 74-106 high Not Available Eugene [address] [place], [address] 10/13/2023 22:50:13 10/13/20 23 10/13/2023 COMPR EHENS ROSEANNE METAB OLIC PANEL BUN 17 mg/dL 7-18 normal Not Available Eugene barnes [address] [place], [address] 10/13/2023 22:50:13 10/13/20 23 10/13/2023 COMPR EHENS ROSEANNE METAB OLIC PANEL creatinine 0.9 mg/dL 0.70-1 .30 normal Not Available [address] [place], [address] 10/13/2023 22:50:13 10/13/20 23 10/13/2023 COMPR EHENS ROSEANNE METAB OLIC PANEL estimated GFR 91.31 mL/min /1.73m 2 The eGFR is calcu lated from a serum creat inine using the CKD-E PI 2020 equat ion. Other varia bles requi red for the equat ion are gende r and age; this equat ion does not inclu de a race coeff icien t. This equat ion has simil ar overa ll perfo rmanc e to previ ous equat ions excep t value s may diffe r, in parti cular , in patie nts with highe r value s of eGFR and young er-ag ed adult s. Not Available [address] [place], [address] 10/13/2023 22:50:13 10/13/20 23 10/13/2023 COMPR EHENS ROSEANNE METAB OLIC PANEL total protein 7.2 g/dL 6.4-8. 2 normal Not Available [address] [place], [address] 10/13/2023 22:50:13 10/13/20 23 10/13/2023 COMPR EHENS ROSEANNE METAB OLIC PANEL albumin 3.8 g/dL 3.4-5. 0 normal Not Available [address] [place], [address] 10/13/2023 22:50:13 10/13/20 23 10/13/2023 COMPR EHENS ROSEANNE METAB OLIC PANEL bilirubin, total 1.5 mg/dL 0.2-1. 0 high Not Available [address] [place], [address] 10/13/2023 22:50:13 10/13/20 23 10/13/2023 COMPR EHENS ROSEANNE METAB OLIC PANEL alk phos 56 U/L 46-116 normal Not Available [address] [place], [address] 10/13/2023 22:50:13 10/13/20 23 10/13/2023 COMPR EHENS ROSEANNE METAB OLIC PANEL sodium 140 mmol/ L 136-14 5 normal Not Available [address] [place], [address] 10/13/2023 22:50:13 10/13/20 23 10/13/2023 COMPR EHENS ROSEANNE METAB OLIC PANEL potassium 4.4 mmol/ L 3.5-5. 1 normal Not Available [address] [place], [address] 10/13/2023 22:50:13 10/13/20 23 10/13/2023 COMPR EHENS ROSEANNE METAB OLIC PANEL chloride 104 mmol/ L 98-107 normal Not Available [address] [place], [address] 10/13/2023 22:50:13 10/13/20 23 10/13/2023 COMPR EHENS ROSEANNE METAB OLIC PANEL CO2 27.0 mmol/ L 21.0-3 2.0 normal Not Available [address] [place], [address] 10/13/2023 22:50:13 10/13/20 23 10/13/2023 COMPR EHENS ROSEANNE METAB OLIC PANEL anion gap 9.0 mmol/ L 3-11 normal Not Available [address] [place], [address] 10/13/2023 22:50:13 10/13/20 23 10/13/2023 COMPR EHENS ROSEANNE METAB OLIC PANEL AST 12 U/L 15-37 low Not Available [address] [place], [address] 10/13/2023 22:50:13 10/13/20 23 10/13/2023 COMPR EHENS ROSEANNE METAB OLIC PANEL ALT 27 U/L 16-63 normal Not Available Eugene [address] [place], [address] 10/13/2023 22:50:13 10/13/20 23 10/13/2023 ESR ESR 15 mm/HR 0-20 normal Not Available [address] [place], [address] 10/13/2023 22:50:15 10/13/20 23 10/13/2023 MICRO SCOPI C FINDI NGS WBC 3-5 hpf 0-5 Not Available Eugene barnes [address] [place], [address] 10/13/2023 22:50:15 10/13/20 23 10/13/2023 MICRO SCOPI C FINDI NGS RBC 10-20 hpf 0-2 abnormal Not Available [address] [place], [address] 10/13/2023 22:50:15 10/13/20 23 10/13/2023 MICRO SCOPI C FINDI NGS epithelial cells Rare hpf negati ve Not Available [address] [place], [address] 10/13/2023 22:50:15 10/13/20 23 10/13/2023 MICRO SCOPI C FINDI NGS bacteria Rare hpf negati ve Not Available [address] [place], [address] 10/13/2023 22:50:15 10/13/20 23 10/13/2023 MICRO SCOPI C FINDI NGS crystals Negati ve hpf negati ve Not Available [address] [place], [address] 10/13/2023 22:50:15 10/13/20 23 10/13/2023 MICRO SCOPI C FINDI NGS mucus Negati ve negati ve Not Available [address] [place], [address] 10/13/2023 22:50:15 10/13/20 23 10/13/2023 MICRO SCOPI C FINDI NGS casts Negati ve lpf negati ve Not Available [address] [place], [address] 10/13/2023 22:50:15 10/13/20 23 10/13/2023 MICRO SCOPI C FINDI NGS C S indicated? Yes Not Available [address] [place], [address] 10/13/2023 22:50:15 10/13/20 23 10/15/2023 URINE CULTU RE urine culture Urine Cultu re Day 1 Resul t NO GROWT H 24 HOURS Not Available [address] [place], [address] 10/15/2023 08:44:22 10/13/20 23 10/16/2023 URINE CULTU RE urine culture Urine Cultu re Day 1 Resul t NO GROWT H 24 HOURS Day 2 Resul t NO GROWT H 48 HOURS Not Available [address] [place], [address] 10/16/2023 11:56:43 01/02/20 24 01/02/2024 URINA LYSIS color Red yellow Speci men gross ly blood y, testi ng perfo rmed on super dilip t. Exces sive blood prese nt may inter fere with the accur acy of some resul ts. Not Available [address] [place], [address] 01/02/2024 17:14:37 01/02/20 24 01/02/2024 URINA LYSIS clarity Cloudy clear Not Available Eugene barnes [address] [place], [address] 01/02/2024 17:14:37 01/02/20 24 01/02/2024 URINA LYSIS specific gravity 1.015 1.005- 1.025 normal Not Available [address] [place], [address] 01/02/2024 17:14:37 01/02/20 24 01/02/2024 URINA LYSIS pH 6.5 5-8 normal Not Available Eugene barnes [address] [place], [address] 01/02/2024 17:14:37 01/02/20 24 01/02/2024 URINA LYSIS leukocyte esterase Negati ve negati ve Not Available [address] [place], [address] 01/02/2024 17:14:37 01/02/20 24 01/02/2024 URINA LYSIS nitrite Negati ve negati ve Not Available [address] [place], [address] 01/02/2024 17:14:37 01/02/20 24 01/02/2024 URINA LYSIS protein 30 mg/dL neg-tr taina abnormal Not Available [address] [place], [address] 01/02/2024 17:14:37 01/02/20 24 01/02/2024 URINA LYSIS glucose >=1000 mg/dL negati ve abnormal Not Available [address] [place], [address] 01/02/2024 17:14:37 01/02/20 24 01/02/2024 URINA LYSIS ketones Negati ve mg/dL negati ve Not Available [address] [place], [address] 01/02/2024 17:14:37 01/02/20 24 01/02/2024 URINA LYSIS urobilinogen 0.2 mg/dL up to 0.2 Not Available [address] [place], [address] 01/02/2024 17:14:37 01/02/20 24 01/02/2024 URINA LYSIS bilirubin Negati ve negati ve Not Available [address] [place], [address] 01/02/2024 17:14:37 01/02/20 24 01/02/2024 URINA LYSIS blood Large negati ve abnormal Not Available [address] [place], [address] 01/02/2024 17:14:37 01/02/20 24 01/02/2024 URINA LYSIS color Red yellow Speci men gross ly blood y, testi ng perfo rmed on super dilip t. Exces sive blood prese nt may inter fere with the accur acy of some resul ts. Not Available [address] [place], [address] 01/02/2024 17:16:36 01/02/20 24 01/02/2024 URINA LYSIS clarity Cloudy clear Not Available Eugene barnes [address] [place], [address] 01/02/2024 17:16:36 01/02/20 24 01/02/2024 URINA LYSIS specific gravity 1.015 1.005- 1.025 normal Not Available [address] [place], [address] 01/02/2024 17:16:36 01/02/20 24 01/02/2024 URINA LYSIS pH 6.5 5-8 normal Not Available Eugene barnes [address] [place], [address] 01/02/2024 17:16:36 01/02/20 24 01/02/2024 URINA LYSIS leukocyte esterase Negati ve negati ve Not Available [address] [place], [address] 01/02/2024 17:16:36 01/02/20 24 01/02/2024 URINA LYSIS nitrite Negati ve negati ve Not Available [address] [place], [address] 01/02/2024 17:16:36 01/02/20 24 01/02/2024 URINA LYSIS protein 30 mg/dL neg-tr taina abnormal Not Available [address] [place], [address] 01/02/2024 17:16:36 01/02/20 24 01/02/2024 URINA LYSIS glucose >=1000 mg/dL negati ve abnormal Not Available [address] [place], [address] 01/02/2024 17:16:36 01/02/20 24 01/02/2024 URINA LYSIS ketones Negati ve mg/dL negati ve Not Available [address] [place], [address] 01/02/2024 17:16:36 01/02/20 24 01/02/2024 URINA LYSIS urobilinogen 0.2 mg/dL up to 0.2 Not Available [address] [place], [address] 01/02/2024 17:16:36 01/02/20 24 01/02/2024 URINA LYSIS bilirubin Negati ve negati ve Not Available [address] [place], [address] 01/02/2024 17:16:36 01/02/20 24 01/02/2024 URINA LYSIS blood Large negati ve abnormal Not Available [address] [place], [address] 01/02/2024 17:16:36 01/02/20 24 01/02/2024 MICRO SCOPI C FINDI NGS RBC >50 hpf 0-2 abnormal RBCs obscu re micro scopi c exam. Not Available [address] [place], [address] 01/02/2024 17:16:37 01/02/20 24 01/02/2024 MICRO SCOPI C FINDI NGS C S indicated? No Not Available [address] [place], [address] 01/02/2024 17:16:37 01/14/20 24 01/14/2024 PSA, DIAGN OSTIC PSA, diagnostic 9.3 NG/mL <=6.5 abnormal NOTE: Serum PSA caleb ntrat ion shoul d not be inter prete d as absol sincere evide nce for the prese nce or absen ce of pio chaparro se. Assay ed on Sieme ns ADVIA Centa ur XPT using chemi lumin escen t techn ology . Value s obtai jessica by using diffe rent assay metho ds canno t be used inter saini eably . Test perfo rmed or refer red by [facility] [address] [place] [address] Not Available [address] [place], [address] 01/15/2024 08:36:36 04/12/20 24 04/12/2024 hemog lobin A1C, finge rstic k hemoglobin A1C 7.7 % <5.7 Not Available [address], [address], 04/12/2024 14:40:56 10/21/20 23 10/21/2023 ultra sound imagi ng repor t Patien t Name: Yohana Nichole Unit #: [id number] Loc: DI Orderi ng Provid er: Abimael Cisneros M.D. Accoun t #: [id number] Status : REG CLI Primar y Care Provid er: Kendrick Darling M.D. Date of Exam: Sex: M Admiss ion Date: : 1949 Age: 73 Exam(s ) US RENAL EXAM: US RENAL CLINIC AL HISTOR Y: H/O HEMATU ALIYA, Z87.44 8. TECHNI QUE: Estes scale, color and spectr al Dopple r were used. COMPAR SUDHAKAR: CT ABD/PE LVIS WO W CONTRA ST from 2011 FINDIN GS: Renal size in cm: Right: 14.2. Left: 13.2. Echoge nicity : Normal . Hydron ephros is: No. Cyst or mass: There is a 5 x 4.6 x 5.0 cm cyst in the superi or pole of the right kidney . This was presen t on the prior CT scan from 2011. There are simple cysts seen in the left kidney . The larges t measur es 4.3 x 2.1 x 3.6 cm. These were presen t on the prior examin ations from 2011. No follow -up is recomm ended. Nephro lithia sis: No. Other findin gs: None. Bladde r:Norm al. There is again seen a right sided urinar y bladde r valve reticu mango. Prevoi d the bladde r divert iculum contai jessica 156 cc. Postvo id bladde r divert iculum contai jessica 136 cc. Ureter al jets: Right: Not visual ized on the curren t examin ation. Left: Not visual ized on the curren t examin ation. Prevoi d vol:75 0 cc Postvo id vol:34 3 cc Prosta te: 70 cc Renal color flow: Symmet grayson and within normal limits . IMPRES PAULA: 1. Persis tent simple bilate ral renal cysts. No follow -up is recomm ended. 2. Large right- sided bladde r divert iculum is again seen. 3. Large postvo id urinar y bladde r volume . 4. Enlarg ed prosta te gland. DATA REPOSI TORY: Ordere d By: Abimael Cisneros M.D. CC: ------ ------ ------ ------ ------ ------ ------ ------ ------ ------ ------ ------ - Dictat ed By: Feng Stanley M.D. 814 Transc ribed By: Feng Stanley 814 This is privil eged, confid ential inform ation intend ed only for the provid er named. Any use or distri bution by any person other than this provid er is strict ly prohib ited. If you receiv e this report in error, please notify us immedi ately at [phone] and return the origin al report to us at the addres s above. Thank- you. meet [facility] [address], [place], [address] 10/21/2023 16:55:44 12/30/19 24 12/30/2023 histo ry physi keshawn exami natio n HISTOR Y PHYSIC AL EXAMIN ATION PATIEN T NAME: Yohana Nichole UNIT #: [id number] ADMITT ING PROVID ER: Milan Mcmahan M.D. ACCOUN T #: [id number] PRIMAR Y CARE PROVID ER: CASE CISNEROS MD DATE OF ADMIT: : 1949 Date of servic e: Time of Servic e: 08:09 Assess ment and Plan Assess ment and plan (1) Hematu aliya: Assess ment and plan: We will move forwar d with cystos copy and bilate ral retrog rade pyelog johnson. If we find any suspic ious areas in the bladde r, we will be prepar ed to do a transu rethra l resect ion. Qualif iers: Hematu aliya type: gross Qualif ied Code(s ): R31.0 - Gross hematu aliya Histor y of Presen t Illnes s Histor y of Presen t Illnes s Chief Compla int: Gross hematu aliya Narrat roseanne: This is a 73-yea r-old gentle man who has a histor y of gross painle ss hematu aliya. He was evalua fredis with a renal ultras ound which showed no signif icant upper tract diseas e. He does have a fairly large bladde r divert iculum on the right side. His gross hematu aliya has resolv ed but he has had persis tent micros copic hematu aliya. He presen ts now for cystos copy with bilate ral retrog rade pyelog johnson to comple te his hematu aliya workup . Review of System s Narrat roseanne: No fevers or chills No vision change or dyspha alvarez Hx diabet es. No thyroi d dysfun ction Sleep apnea - stoppe d using CPAP. No shortn ess of breath , cough or hemopt ysis No chest pain or palpit ations No nausea , vomiti ng, hepati tis, ulcers , jaundi ce No seizur es or stroke s. Possib le diabet ic neurop athy No bleedi ng disord ers or anemia No gout PFSH All Active Proble ms (Revwed @ 07:49 by Alyssa Munson ) Diabet ic neurop athy (Acute ) Sleep apnea (Acute ) Hypert ension (Chron ic) Diabet es mellit us (Chron ic) Hyperl ipidem ia (Acute ) Medica l Histor y (Revwed @ 07:49 by Alyssa Munson ) Hematu aliya Diffus e capill daniel jennifer ioma Allerg ic rhinit is Surgic al Histor y (Revie wed @ 07:49 by Alyssa Munson ) Repair of umbili keshawn hernia Colono scopy - MAC (06/02) Social Histor y Smokin g/Toba director account management Use Status : Never Smokin g risk assess ment perfor med?: Yes Alcoho l Intake : curren t Alcoho l Intake freque ncy: a few times a week Alcoho l type: wine Drug use: Never Substa nce use type: does not use Detail s: alcoho l: t-7 Housin g: house Do you feel safe at home: Yes Do you feel safe in your relati onship ?: Yes Additi onal Social histor y: unable to assess privat elissa Meds Allerg ies and Home Medica tions Allerg ies Allerg y/AdvR eac Type Severi ty Reacti on Status Date / Time No Known Allerg ies Allerg y Verifi ed 07:44 Home Medica tions Medica tion Instru ctions Record ed Confir med Type atorva statin 20 mg tablet 20 mg PO DAILY Histor y lisino pril 10 mg tablet 10 mg PO DAILY Histor y metfor min 1,000 mg tablet 1,000 mg PO BID Histor y empagl iflozi n 10 mg tablet 10 mg PO DAILY Histor y (Natasha jimenez) silden afil 100 mg tablet 100 mg PO DAILY PRN Histor y Exam Const Genera l: daniel ative and comfor table Neck Neck: supple Resp Effort Inspec tion: normal respir atory effort Auscul tation : clear to auscul tation bilate rally Cardio Rate: regula r rate Rhythm : regula r rhythm GI Palpat ion: soft Neuro Genera l: patien t alert, patien t awake and patien t orient ed x3 Result s Last Vital Signs Temp 36.1 C L 07:47 Pulse 58 L 07:47 Resp 16 07:47 BP 127/78 07:47 Pulse Ox 97 07:47 Time Spent Time spent with Patien t: <40 minute s Time was spent: other cc: BLAYNE AL, CASE ------ ------ ------ ------ ------ ------ ------ ------ ------ ------ ------ --- Dictat ed by: SHANICE MCMAHAN MD Dictat ed: Time: 807 Date: 825 Date: Date: Transc ribed Date: Transc ribed Time: 807 By: JODY This is privil eged, confid ential inform ation, intend ed only for the provid er named. Any use or distri bution by any person other than this provid er is strict ly prohib ited. If you receiv e this report in error, please notify us immedi graciequita at and return the origin al report to us at the addres s above. Thank you. meet [facility] [address], [place], [address] 12/30/2023 09:52:16 12/30/19 24 12/30/2023 physi scottie dsu disch arge repor t PHYSIC JOANA DSU DISCHA RGE REPORT PATIEN T NAME: Yohana Nichole UNIT #: [id number] ADMITT ING PROVID ER: Milan Mcmahan M.D. ACCOUN T #: [id number] PRIMAR Y CARE PROVID ER: CASE CISNEROS MD DATE OF ADMIT: : 1949 Date of servic e: Time of Servic e: 09:33 Discha rge Plan Dispos ition Patien t Dispos ition: Home Discha rge Detail s Reason For Visit: cystos copy Attend ing Provid er: Milan Mcmahan Primar y Care Provid er: Abimael Cisneros Home Meds and New Rx's Prescr iption s: No Action atorva statin 20 mg tablet 20 mg PO DAILY metfor min 1,000 mg tablet 1,000 mg PO BID lisino pril 10 mg tablet 10 mg PO DAILY Jardia nce 10 mg tablet 10 mg PO DAILY silden afil 100 mg tablet 100 mg PO DAILY PRN Rx Instru ctions : admini ster 30 minute s to 4 hours before activi ty Discha rge Instru ctions Additi onal Instru ctions : follow up 1 to 2 weeks to discus s cytolo gy result s (can be by phone if easier for patifahad t) Discha rge Orders Discha rge Orders : Discha rge Order (Marc ludwig); Ordere d Ordere d By: Milan Mcmahan DS: Diagno sis Discha rge Diagno sis (1) Hematu aliya: cc: ------ ------ ------ ------ ------ ------ ------ ------ ------ ------ ------ --- Dictat ed by: MARCIA AL,SHANICE MISSY Dictat ed: Time: 932 Date: 934 Date: Date: Transc ribed Date: Transc ribed Time: 932 By: JODY This is privil eged, confid ential inform ation, intend ed only for the provid er named. Any use or distri bution by any person other than this provid er is strict ly prohib ited. If you receiv e this report in error, please notify us immedi graciely at [phone] and return the origin al report to us at the addres s above. Thank you. meet [facility] [address] [place], [address] 12/30/2023 09:52:16 12/30/19 24 12/30/2023 repor t of opera tion REPORT OF OPERAT ION PATIEN T NAME: Yohana Nichole deandre A UNIT #: [id number] ADMITT ING PROVID ER: Milan Mcmahan M.D. ACCOUN T #: [id number] PRIMAR Y CARE PROVID ER: CASE CISNEROS MD DATE OF ADMIT: : 1949 Date of servic e: Time of Servic e: 09:36 Operat roseanne Note Operat roseanne Note DATE OF PROCED URE: PRE-OP DIAGNO SIS: Hematu aliya POST-O P DIAGNO SIS: same Prosta tic enlarg ement PROCED URE: cystos copy with bilate ral retrog rade pyelog johnson SURGEO N: Milan Mcmahan ANESTH ESIA TYPE: Local By Surgeo n and Genera l:No Airway Refer to Anesth esia Record ESTIMA FREDIS BLOOD LOSS: 5 PATHOL OGY: other (urine for cytolo gy) COMPLI CATION S: None Patien t was transp orted to: PACU Patien t's condit ion: stable Implan ts: none Indica tions: This is a 73-yea r-old gentle man who has had episod es of gross painle ss hematu aliya previo usly. He believ es the episod es are relate d to physic al activi ty. He had a renal ultras ound which showed normal upper tracts . A large right- sided bladde r divert iculum was identi fied. He presen ts now for cystos copy and bilate ral retrog rade pyelog mary. Findin gs: trilob ar prosta tic enlarg ement heavil y trabec ulated bladde r unable to negoti ate scope into right sided divert iculum Proced ure Descri ption: The patien t was given preope rative antibi otics and clarissa t to the operat ing room on 024. After succes sful induct ion of genera l anesth esia, he was placed in the dorsal lithot jay jay positi on. His genita mona was preppe d and draped . 2% Xyloca lili grissom was instil led into the urethr a to act as a local anesth etic. 22 Namibian cystos cope was passed throug h the urethr a into the bladde r. We were initia lly unable to pass the scope, so we dilate d the urethr al meatus up to 24 Namibian before introd ucing the cystos cope. The urethr a and bladde r were inspec fredis with a 30 degree lens. The pendul ous, bulbar and membra nous urethr a was all appear ed normal with no strict ures. The prosta tic urethr a showed trilob ar enlarg ement with promin ent blood vessel s presen t. No active blee ding was seen. The bladde r neck was entere d and the bladde r mucosa was inspec fredis. I was able to visual ize both ureter al orific es and cannul ate the orific e with a 5 Namibian access cathet er. Retrog rade pyelog mary were obtain ed by inject ing Omnipa que throug h the access cathet er under fluoro scopic guidan ce. Distal J hookin g of the ureter s was identi fied but no fillin g defect s are seen in the ureter s or collec ting system s. Both sides draine d prompt ly on a 5-ronna te draina ge film. The remain ziyad the bladde r was inspec fredis and it appear ed heavil y trabec ulated with multip le small divert iculi and cellul es. The mouth to the large divert iculum was identi fied, but I was unable to pass my cystos cope into the divert iculum comple tely to visual ize all the mucosa . I then obtain ed a urine cytolo gy by washin g the bladde r and divert iculum with saline and collec ting the fluid sample . The sample was sent to pathol nery. The bladde r was reinsp ected with a 70 degree lens. This inspec tion confir med the absenc e of papill daniel or nodula r lesion s within the bladde r. The bladde r was emptie d and the cystos cope was withdr awn. Assumi ng that the urinar y cytolo gy is normal , we will expect that his hematu aliya is relate d to his prosta te and he might actual ly benefi t from a 5 alpha reduct ase inhibi tor to decrea se the prosta te volume . cc: BLAYNE AL, CASE ------ ------ ------ ------ ------ ------ ------ ------ ------ ------ ------ --- Dictat ed by: SHANICE MCMAHAN MD Dictat ed: Time: 935 Date: 1108 Date: Date: Transc ribed Date: Transc ribed Time: 935 By: JODY This is privil eged, confid ential inform ation, intend ed only for the provid er named. Any use or distri bution by any person other than this provid er is strict ly prohib ited. If you receiv e this report in error, please notify us immedi ately at [phone] and return the origin al report to us at the addres s above. Thank you. meet [facility] [address] [place], [address] 12/30/2023 11:26:25 12/30/19 24 12/30/2023 x-ray imagi ng repor t Marcela t Name: Yohana Nichole Unit #: [id number] Loc: JENA Orderi ng Provid er: Milan Mcmahan M.D. Accoun t #: [id number] Status : REG HIC Primar y Care Provid er: Abimael Cisneros M.D. Date of Exam: Sex: M Admiss ion Date: : 1949 Age: 73 Exam(s ) XR RETROG RADE IN OR EXAM: XR RETROG RADE IN OR CLINIC AL HISTOR Y: HEMATU ALIYA TECHNI QUE: 2D and realti me digita l imagin g was perfor med. CONTRA ST MATERI AL: Refer to proced ure report . COMPAR SUDHAKAR: US US RENAL from 2022 FINDIN GS: Fluoro scopy was provid ed for Dr. Mcmahan during the perfor neena of a retrog rade evalua tion of the renal [facility] ting system . Please refer to the proced ure report for comple te detail sDominic Randolph,r=4 .88 mGy IMPRES PAULA: RADIAT ION DOSE DELIVE RED: Ordere d By: Milan Mcmahan M.D. CC: ------ ------ ------ ------ ------ ------ ------ ------ ------ ------ ------ ------ - Dictat ed By: Feng Stanley M.D. 1128 Transc ribed By: Feng Stanley 1128 This is privil eged, confid ential inform ation intend ed only for the provid er named. Any use or distri bution by any person other than this provid er is strict ly prohib ited. If you receiv e this report in error, please notify us immedi ately at and return the origin al report to us at the addres s above. Thank- you. meet [address] [place], [address] 12/30/2023 12:33:47 01/02/20 24 01/02/2024 ED visit note ED Visit Note MARCELA T NAME: Surinder cárdenasShunjoan deandre [place] UNIT #: [id number] ADMITT ING PROVID ER: Kat Vernon DO ACCOUN T #: [id number] PRIMAR Y CARE PROVID ER: CASE CISNEROS MD DATE OF ADMIT: : 1949 Discha rge Plan Dispos ition Patien t Dispos ition: Home Condit ion: Good Discha rge Detail s Chief Compla int: Urinar y Clinic al Impres paula: Acute urinar y obstru ction, Hematu aliya Primar y Care Provid er: Abimael Cisneros ED Provid er: Kat Vernon Home Meds and New Rx's Prescr iption s: No Action atorva statin 20 mg tablet 20 mg PO DAILY metfor min 1,000 mg tablet 1,000 mg PO BID lisino pril 10 mg tablet 10 mg PO DAILY Jardia nce 10 mg tablet 10 mg PO DAILY Discha rge Instru ctions Instru ctions : Carlos Cathet er Placem ent and Care (ED) Additi onal Instru ctions : Please leave the Carlos cathet er in until you are able to follow -up closel y with Dr. Mcmahan. Please stay well-h ydrate d. We have placed a referr al with Dr. Mcmahan' s office for close follow -up. If you notice any worsen ing of your sympto ms, or any new sympto ms such as vomiti ng, diarrh ea, fever, chills , shortn ess of breath , chest pain, numbne ss, weakne ss, or fainti ng , please return immedi ately to the emerge ncy depart ment for reeval uation . Please follow up with your primar y care provid er as soon as possib le for reasse ssment and reeval uation . As always , it was a pleasu re partic reymundo licea in your medica l care today. Referr als: Milan Mcmahan MD [ [facility] STAFF PHYSIC JOANA] - HPI Genera l Date/T ashlie Provid er Initia fredis garcia n: 03:45 . HPI Narrat roseanne: This is a pleasa nt 73-yea r-old Caucas joana male with a past medica l histor y of hypert ension , high choles terol, type 1 diabet es, who presen ts today for evalua tion of diffic ulty urinat ing. 3 days ago the patien t had cystos copy for hematu aliya. Divert iculi was noted, but no other signif icant abnorm ality. He did have notabl e vascul arity on cystos copy but no other abnorm alitie s otherw ise. Patien t was discha rged postpr ocedur e, and he did well but began having some small clots and some mild hematu aliya after the fact. This contin ued until tonigh t where it notabl y worsen ed and he has not been able to urinat e for the past 4 to 6 hours of any signif icant volume . He does pee freque ntly throug hout the night, and has not been able to do this. He admits to sensat ion of signif icant suprap ubic pressu re. No other compla ints at this time. Relate d Data Home Medica tions Medica tion Instru ctions Record ed Confir med atorva statin 20 mg tablet 20 mg PO DAILY lisino pril 10 mg tablet 10 mg PO DAILY metfor min 1,000 mg tablet 1,000 mg PO BID empagl iflozi n 10 mg tablet 10 mg PO DAILY (Natasha jimenez) Allerg ies Allerg y/AdvR eac Type Severi ty Reacti on Status Date / Time No Known Allerg ies Allerg y Verifi ed 03:59 Genera l Stated Compla int: Urinar y SRINIVASAN: 3 Review of System s All system s review ed are unrema rkable except as noted in HPI and below Exam Narrat roseanne Exam Narrat roseanne: 1.Cons t: Well-n ourish ed, Well-d evelop ed, appear ing stated age 2.Eyes : PERRL, no conjun ctival inject ion, and symmet rical lids. 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 Moist MM. Neck: Symmet grayson, trache a midlin e, No thyrom egaly. 4.CVS: +S1/S2 , No murmur s or gallop s. Periph eral pulses 2+ and equal in all extrem ities. Brisk capill daniel refill in all extrem ities. 5.RESP : Unlabo red respir atory effort . Clear to auscul tation bilate rally. No wheeze s rales or rhonch i 6.GI: Soft, Nonten ziyad/No ndiste nded, No hepato spleno megaly . No guardi ng or reboun d. Mild suprap ubic pressu re and palpab le volume of the bladde r is noted. Small amount of blood at the urethr al meatus . No penile or scrota l tender ness. 7.MSK: Normoc ephali c/Atra umatic , Extrem ities w/o deform ity or ttp No cyanos is or clubbi ng, Normal moveme nt of all extrem ities 8.Skin : Warm, Dry. No rashes or lesion s. 9.Neur o: camp guard II-XII grossl y intact . Sensat ion grossl y intact , no focal neurol ogic defici ts. 10.Psy ch: (AAO) x3. Approp riate mood and affect Course Vital Signs Vital signs: Vital Signs Temper ature 36.4 C L 03:49 Pulse 75 03:49 Respir atory Rate 18 03:49 Pulse Oximet ry 98 03:49 Temper ature 36.4 C L 03:49 Pulse 75 03:49 Respir atory Rate 18 03:49 Respir atory Effort Normal 03:55 Pulse Oximet ry 98 03:49 Oxygen Delive ry Method Room Air 03:49 Oxygen Flow Rate 0 03:49 Pain Level 5 03:49 Medica l Decisi on Making This is a pleasa nt 73-yea r-old Caucas joana male with a past medica l histor y of hypert ension , high choles terol, type 1 diabet es, who presen ts today for evalua tion of diffic ulty urinat ing. 3 days ago the marcela dempsey had cystos copy for hematu aliya. Divert iculi was noted, but no other signif icant abnorm ality. He did have notabl e vascul arity on cystos copy but no other abnorm alitie s otherw ise. Marcela dempsey was discha rged postpr ocedur e, and he did well but began having some small clots and some mild hematu aliya after the fact. This contin ued until tonigh t where it notabl y worsen ed and he has not been able to urinat e for the past 4 to 6 hours of any signif icant volume . He does pee freque ntly throug hout the night, and has not been able to do this. He admits to sensat ion of signif icant suprap ubic pressu re. No other compla ints at this time. Exam demons trates well-a ppeari ng male, mild hypert ension . Palpab le bladde r. Concer n for obstru ction second daniel to clot on the prosta te. Discus sed risk and benefi ts of Carlos cathet er, marcela dempsey is consen fredis for cathet erizat ion. Will place cathet er, monito r closel y and reasse ss. 4:30 AM Carlos cathet er was placed withsalena dempsey compli cation by tiara licea staff. Marcela dempsey tolera fredis this well. 650 cc were remove d of blood- tinged urine. Cathet er was clampe d, after a pause, it was restar fredis again for a total of just under a liter of urinar y output . Leg bag was placed for the marcela dempsey. He had comple te resolu tion of his pressu re sympto ms. We will leave the Carlos cathet er in place for the marcela dempsey. Educat ion was perfor med for use of the Carlos cathet er leg bag. Will place referr al with Dr. Mcmahan for close follow -up this week. Discus sed red flags for which to return . I have pals amyely review ed the treatm ent plan and discha rge instru ctions with the marcela dempsey. I have addres sed all patifahad t concer ns at this time. The marcela t was made aware of what sympto ms to monito r for that would warrfannie t a return to the emerge ncy depart ment. Discus sed the plan with the marcela dempsey, they demons trate verbal unders john licea and agreem ent with our assess ment and plan at this time. The docume jose n in this chart was dictat ed using Codealikeat ion softwa re. Please excuse any dictat ion errors . Qualit y:SDOH Health Relate d Social Needs: No Data to Displa y PFSH All Active Proble ms (Updat ed @ 04:28 by Justo Vernon DO) Hematu aliya (Acute ) Acute urinar y obstru ction (Acute ) Diabet ic neurop athy (Acute ) Sleep apnea (Acute ) Hypert ension (Chron ic) Diabet es mellit us (Chron ic) Hyperl ipidem ia (Acute ) Medica l Histor y (Revie wed @ 04:01 by Justo Vernon DO) Hematu aliya Diffus e capill daniel jennifer ioma Allerg ic rhinit is Surgic al Histor y (Revwed @ 04:01 by Justo Vernon DO) Repair of umbili keshawn hernia Colono scopy - MAC (06/02) Social Histor y (Revie wed @ 04:01 by Justo Vernon DO) Smokin g/Toba director account management Use Status : Never Smokin g risk assess ment perfor med?: Yes Alcoho l Intake : curren t Alcoho l Intake freque ncy: a few times a week Alcoho l type: wine Drug use: Never Substa nce use type: does not use Detail s: alcoho l: t-7 Housin g: house Do you feel safe at home: Yes Do you feel safe in your relati onship ?: Yes Additi onal Social histor y: unable to assess privat elissa cc: CASE CISNEROS MD ------ ------ ------ ------ ------ ------ ------ ------ ------ ------ ------ --- Dictat ed by: BRANDYN VERNON DO Dictat ed: Time: 59 Date: 427 Date: Date: Transc ribed Date: Transc ribed Time: 358 By: MICHAEL Higuera This is privil eged, confid ential inform ation, intend ed only for the provid er named. Any use or distri bution by any person other than this provid er is strict ly prohib ited. If you receiv e this report in error, please notify us immdomingoi eliana at and return the origin al report to us at the addres s above. Thank you. meet [facility] [address], [place], [address] 01/02/2024 15:08:35 01/02/20 24 01/02/2024 ED visit note ED Visit Note MARCELA Dempsey NAME: Yohana Nichole deandre [place] UNIT #: [id number] ADMITT ING PROVID ER: Evaristo cervantes,Trino BRYANT ACCOUN T #: [id number] PRIMAR Y CARE PROVID ER: CASE CISNEROS MD DATE OF ADMIT: : 1949 Discha rge Plan Dispos ition Patien t Dispos ition: Home Condit ion: Stable Discha rge Detail s Clinic al Impres paula: Malfun ction of indwel ling urinar y cathet er Primar y Care Provid er: Abimael Cisneros ED Provid er: Borche rs,Trino n Home Meds and New Rx's Prescr iption s: Contin ued atorva statin 20 mg tablet 20 mg PO DAILY metfor min 1,000 mg tablet 1,000 mg PO BID lisino pril 10 mg tablet 10 mg PO DAILY Jardia nce 10 mg tablet 10 mg PO DAILY Discha rge Instru ctions Additi onal Instru ctions : Follow -up with Dr. Mcmahan as discus sed to have Carlos cathet er rechec ked and potent ially remove d next week If there is decrea sed flow, you may try to irriga te as we showed you in the emerge ncy depart ment, this is unsucc essful , please return for reasse ssment or call Dr. Mcmahan Use your leg bag while you are up and about and your bed bag while you are supine or sleepi ng Please return with fever, chills , or she develo p new or worsen ing compla ints Referr als: Abimael Cisneros MD [Prima ry Care Provid er] - Milan Mcmahan MD [ [facility] STAFF PHYSIC JOANA] - HPI Genera l Date/T ashlie Provid er Initia fredis Deann ntatio n: 15:58 . HPI Narrat roseanne: This 73-yea r-old male presen ts with report of obstru cted Carlos cathet er. Urine flowin g around the cathet er. States he had a cathet er placed this mornin g status post cystos copy severa l days prior to arriva l. Denies clots. Denies fever. Otherw ise report edly feels well. Relate d Data Home Medica tions Medica tion Instru ctions Record ed Confir med atorva statin 20 mg tablet 20 mg PO DAILY lisino pril 10 mg tablet 10 mg PO DAILY metfor min 1,000 mg tablet 1,000 mg PO BID empagl iflozi n 10 mg tablet 10 mg PO DAILY (Natasha jimenez) Allerg ies Allerg y/AdvR eac Type Severi ty Reacti on Status Date / Time No Known Allerg ies Allerg y Verifi ed 03:59 Genera l Stated Compla int: Urinar y SRINIVASAN: 4 Course Vital Signs Vital signs: Vital Signs Temper ature 37 C 15:58 Pulse 74 15:58 Respir atory Rate 17 15:58 Blood Pressu re 146/88 H 15:58 Pulse Oximet ry 96 15:58 Temper ature 37 C 18:18 Temper ature Source Tempor al Artery Scan 17:00 Pulse 74 18:18 Respir atory Rate 17 18:18 Respir atory Effort Normal 17:00 Blood Pressu re 146/88 H 18:18 Blood Pressu re Positi on Sittin g 17:00 Pulse Oximet ry 96 18:18 Oxygen Delive ry Method Room Air 17:00 Oxygen Flow Rate 0 15:58 Pain Level 0 17:00 Lab/Te st Result s Lab/Te st Result s: Labora tory Tests Range/ Units 16:38 Urine Color (Yello w) Red Urine Clarit y (Clear ) Cloudy Urine pH (5-8) 6.5 Ur Specif ic Gravit y (1.005 -1.025 ) 1.015 Urine Protei n (Neg-T race) mg/dL 30 H Urine Ketone s (Negat roseanne) mg/dL Negati ve Urine Blood (Negat roseanne) Large H Urine Nitrit e (Negat roseanne) Negati ve Urine Biliru bin (Negat roseanne) Negati ve Urine Urobil inogen (Up to 0.2) mg/dL 0.2 Ur Leukoc yte Estera se (Negat roseanne) Negati ve Urine RBC (0-2) HPF >50 H Urine WBC Not Applic able Ur Epithe lial Cells Not Applic able Urine Becky ls Not Applic able Urine Bacter ia Not Applic able Urine Mucus Not Applic able Ur Cultur e Indica fredis? No Urine Glucos e (Negat roseanne) mg/dL >=1000 H Medica l Decisi on Making 73-yea r-old male presen ts with obstru cted Carlos cathet er for evalua tion, Carlos was placed this mornin g, patien t is afebri le and nontox ic, urinal ysis with blood, no visibl e clots pink discol oratio n, flowin g freely after Carlos cathet er care, ambula tory withou t any residu al malfun ction, reques t discha rge home at this time, no eviden ce of infect ion, will follow -up with Dr. Mcmahan as schedu led appoin tment this week No abdomi nal tender ness, no CVA tender ness, afebri le and nontox ic alert and orient ed x 4, return precau tions review ed and patien t expres sed unders john licea Qualit y:SDOH Health Relate d Social Needs: No Data to Displa y PFSH All Active Proble ms (Updat ed @ 17:32 by Jyotsna cervantes, PA) Malfun ction of indwel ling urinar y cathet er (Acute ) Hematu aliya (Acute ) Acute urinar y obstru ction (Acute ) Diabet ic neurop athy (Acute ) Sleep apnea (Acute ) Hypert ension (Chron ic) Diabet es mellit us (Chron ic) Hyperl ipidem ia (Acute ) Medica l Histor y (Revie wed @ 04:01 by Justo Vernon DO) Hematu aliya Diffus e capill daniel jennifer ioma Allerg ic rhinit is Surgic al Histor y (Revie wed @ 04:01 by Justo Vernon DO) Repair of umbili keshawn hernia Colono scopy - MAC (06/02) Social Histor y (Revie wed @ 04:01 by Justo Vernon DO) Smokin g/Toba director account management Use Status : Never Smokin g risk assess ment perfor med?: Yes Alcoho l Intake : curren t Alcoho l Intake freque ncy: a few times a week Alcoho l type: wine Drug use: Never Substa nce use type: does not use Detail s: alcoho l: t-7 Housin g: house Do you feel safe at home: Yes Do you feel safe in your relati onship ?: Yes Additi onal Social histor y: unable to assess privat elissa cc: BLAYNE AL, CASE ------ ------ ------ ------ ------ ------ ------ ------ ------ ------ ------ --- Dictat ed by: EVARISTO BRYANT,TRINO Rajput Dictat ed: Time: 1823 Date: 1825 Date: Date: Transc ribed Date: Transc ribed Time: 1823 By: CHICHO This is privil eged, confid ential inform ation, intend ed only for the provid er named. Any use or distri bution by any person other than this provid er is strict ly prohib ited. If you receiv e this report in error, please notify us immdomingoi eliana at [phone] and return the origin al report to us at the addres s above. Thank you. meet [facility] [address] , [place], [address] 01/02/2024 23:00:13 Result Notes None recorded. Problems Name Problem SNOMED Code Status Onset Date Resolution Date Notes Provider Name and Address Organization Details Recorded Time Sleep apnea 08368846 Active 2006 past CPAP, less problema tic since wgt loss CASE CISNEROS MD [facility] [address], [place], [address] , [facility] 4 14:36:12 Venereal disease screenin g Completed 202009/11/2021 Problem Code: Z11.3; Problem Code Type: ICD-10; Not Available [facility] 3 05:31:53 Adult health examinat ion Active [address] [facility] 4 18:07:19 Adult health examinat ion Completed 202010/03/2021 Problem Code: Z00.00; Problem Code Type: ICD-10; Elias Espino [facility] 4 18:07:19 Essentia l hyperten paula 25506744 Active [address] [facility] 4 18:07:46 Hyperlip idemia 88627130 [facility] 4 18:07:53 Allergic rhinitis 25670557 Active 2021 [facility] 4 18:07:25 History of skin and/or subcutan eous tissue disease 80596180307 9105 Completed 202112/15/2022 Problem Code: Z87.2; Problem Code Type: ICD-10; Not Available [facility] 3 05:31:54 Exposure to communic able disease Completed 201912/15/2022 Problem Code: Z20.9; Problem Code Type: ICD-10; Not Available [facility] 3 05:31:54 Essentia l hyperten paula 70279188 Completed 201908/11/2021 Problem Code: I10; Problem Code Type: ICD-10; [facility] 4 18:07:46 Follicul ar cysts of skin and subcutan eous tissue 561838943 Completed 201908/11/2021 Problem Code: L72.9; Problem Code Type: ICD-10; Not Available [facility] 3 05:31:54 Disorder of skin and/or subcutan eous tissue 02580910 Completed 202112/15/2022 Problem Code: L98.9; Problem Code Type: ICD-10; Not Available [facility] 3 05:31:54 Obesity 360106190 Completed 200608/04/2023 Not Available [facility] 3 05:31:55 Disorder of skin and/or subcutan eous tissue 57422117 Completed 201408/11/2021 Problem Code: L98.9; Problem Code Type: ICD-10; Not Available [facility] 3 05:31:55 Ingrowin g nail 324662828 Completed 201508/11/2021 Problem Code: L60.0; Problem Code Type: ICD-10; Not Available [facility] 3 05:31:55 Pain of right knee joint 67636075340 4100 Completed 202112/15/2022 Problem Code: M25.561; Problem Code Type: ICD-10; Not Available [facility] 3 05:31:55 Hypertro phic conditio n of skin 12600895 Completed 201608/11/2021 Problem Code: L91.8; Problem Code Type: ICD-10; Not Available [facility] 3 05:31:55 History of hematuri a 234825005 Active [address], [place], [address] , [facility] 3 15:06:49 Type 2 diabetes mellitus 53955545 Active [address], [place], [address] , [facility]. 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 [address] , [facility] [facility] 12:40:56 Piriform is syndrome 296055997 Completed 202210/19/[address] R MD [address], [place], [address] , [facility] 3 12:41:50 Acute sciatica 730340570 Completed 202304/12/[address], [place], [address] , [facility] 4 07:19:05 Sacroili ac disorder 361853265 Active 2023 right MD [address], [place], [address] , [facility] 4 14:32:37 Problem Notes None recorded. Procedures Surgical History Date Name Laterality Status Provider Name and Address Organization Details Recorded Time Colonoscopy completed ANETA VAN [facility] 04/12/2024 14:04:52 Imaging Results Imaging Date Name Status [facility]Modified by [facility] Details LastModified Time 10/21/2023 ultrasound imaging report completed [address] [place], [address] 10/21/2023 16:55:44 12/30/2023 history physical examination completed [address] [place], [address] 12/30/2023 09:52:16 12/30/2023 physician dsu discharge report completed [address] [place], [address] 12/30/2023 09:52:16 12/30/2023 report of operation completed [address] [place], [address] 12/30/2023 11:26:25 12/30/2023 x-ray imaging report completed [address] [place], [address] 12/30/2023 12:33:47 01/02/2024 ED visit note completed meet [facility] [address] [facility] [place], [address] 01/02/2024 15:08:35 01/02/2024 ED visit note completed meet [place] [id number] [facility] [place], [address] 01/02/2024 23:00:13 Procedure Notes None recorded. Medical Equipment None Reported. Allergies No known drug allergies Medications Name Sig Start Date Stop Date Status Note LastModified by Organization Details LastModified Time Prescript ion - Renewal active Cert of Med Necessit y Not Available Not Available Not Available metformin 500 mg tablet Take 1 tablet by mouth twice a day 12/15 completed Not Available Not Available Not Available atorvasta tin 20 mg tablet TAKE ONE TABLET BY MOUTH EVERY NIGHT active Not Available Not Available No t Available tizanidin e 2 mg tablet TAKE 1 TO 2 TABLET BY MOUTH EVERY 8 HOURS NEEDED 04/12 completed Not Available Not Available Not Available sildenafi l 50 mg tablet Take 0.5-1 tablet as needed 08/11 completed Not Available Not Available Not Available tramadol 50 mg tablet TAKE 1-2 TABLETS BY MOUTH EVERY 6 HOURS NEEDED 04/12 completed Not Available Not Available Not Available sildenafi l 100 mg tablet Take 0.5-1 tablet by mouth as needed 04/12 completed Not Available Not Available Not Available triamcino lone acetonide 0.1 % topical cream Apply twice a day as directed 08/11 completed Not Available Not Available Not Available malathion 0.5 % lotion APPLY TOPICALL Y EVERY WEEK FOR 2 DOSES 04/12 completed Not Available Not Available Not Available doxycycli ne monohydra te 100 mg capsule TAKE 1 CAPSULE BY MOUTH TWO TIMES A DAY FOR 10 DAYS 10/13 completed Not Available Not Available Not Available metformin 1,000 mg tablet Take 1 tablet by mouth twice a day active Not Available Not Available No t Available lisinopri l 10 mg tablet TAKE ONE TABLET BY MOUTH EVERY DAY active Not Available Not Available No t Available prednison e 50 mg tablet TAKE ONE TABLET BY MOUTH EVERY DAY FOR 7 DAYS 04/12 completed Not Available Not Available Not Available aspirin 81 mg tablet 05/23 completed Not Available Not Available Not Available finasteri de 5 mg tablet TAKE ONE TABLET BY MOUTH EVERY DAY 04/12 completed Not Available Not Available Not Available Cialis 10 mg tablet Take 1 by mouth prior to intercou rse as needed 04/08 completed Not Available Not Available Not Available Jardiance 10 mg tablet TAKE ONE TABLET BY MOUTH EVERY DAY active Not Available Not Available No t Available Shingrix Adjuvant Component (PF) intramusc ular suspensio n PRescrip tion sent to pharmacy of choice for pt to get vaccine 04/12 completed Not Available Not Available Not Available QuickVue At-Home COVID-19 Test kit USE TO TEST AT HOME 10/13 completed Not Available Not Available Not Available Vitals Date Recorded Body height Body mass index (BMI) Body weight Body temperature Oxygen saturation Oxygen saturation in Arterial blood by Pulse oximetry Heart rate Systolic blood pressure Diastolic blood pressure Provider Name and Address Organization Details Last Updated DateTime 3 170.18 cm 27.9 kg/m2 02605.4 4 g 97.1 [degF] 98 % 98 % 72 /min 130 mm[Hg] 80 mm[Hg] ANETA VAN MA [facility] 3 14:50:44 Date Recorded Body height Body mass index (BMI) Body weight Body temperature Oxygen saturation Oxygen saturation in Arterial blood by Pulse oximetry Heart rate Systolic blood pressure Diastolic blood pressure Provider Name and Address Organization Details Last Updated DateTime 4 170.18 cm 27.4 kg/m2 14066.6 6 g 97 [degF] 98 % 98 % 74 /min 124 mm[Hg] 80 mm[Hg] ANETA VAN MA [facility] 4 09:59:04 Date Recorded Body height Body mass index (BMI) Body weight Body temperature Oxygen saturation Oxygen saturation in Arterial blood by Pulse oximetry Heart rate Systolic blood pressure Diastolic blood pressure Provider Name and Address Organization Details Last Updated DateTime 4 170.18 cm 26.8 kg/m2 10285.3 g 97.1 [degF] 98 % 98 % 74 /min 130 mm[Hg] 80 mm[Hg] ANETA VAN MA [facility] 14:25:36 Social History None recorded. Functional Status None recorded. Mental Status None recorded. Family History Relationship Description Onset Age of this Age Resolved Age Notes LastModified by Organization Details LastModified Time Unspecified Relation Family history of malignant neoplasm of lung smoker and work exposu re to chemic al. Relati ve: 'Uncle '; [email or web address] Not available 09/17/2023 04:00:46 Father Family history of heart failure CAD [email or web address] Not available 2022 04:00:46 Notes:*Problem: Father CAD, onset age 60s. No hx of colon CA. brother with sleep apnea Medical History No medical history recorded. Immunizations Vaccine Type Date Status Provider Name and Address Organization Details Recorded Time Td (adult), 2 Lf tetanus toxoid, preservative free, adsorbed 08/11/2021 completed Not Available [facility] 09/17/2023 06:27:50 Tdap 01/13/2010 completed Not Available [facility] 06:27:50 zoster live 03/02/2014 completed Not Available [facility] 09/17/2023 06:27:50 Influenza, high-dose, trivalent, PF 08/10/2018 completed Not Available [facility] 09/17/2023 06:27:50 Influenza, high-dose, quadrivalent, PF 08/11/2021 completed Not Available [facility] 09/17/2023 06:27:50 Influenza, high-dose, quadrivalent, PF 09/27/2020 completed Not Available [facility] 09/17/2023 06:27:50 COVID-19, mRNA, LNP-S, PF, 30 mcg/0.3 mL dose 01/10/2021 completed Not Available [facility] 09/17/2023 06:27:50 COVID-19, mRNA, LNP-S, PF, 30 mcg/0.3 mL dose 02/07/2021 completed Not Available [facility] 09/17/2023 06:27:50 COVID-19, mRNA, LNP-S, PF, 30 mcg/0.3 mL dose 08/21/2021 completed Not Available [facility] 09/17/2023 06:27:50 SARS-COV-2 (COVID-19) vaccine, UNSPECIFIED 09/18/2022 completed Not Available [facility] 09/17/2023 06:27:51 COVID-19, mRNA, LNP-S, PF, 30 mcg/0.3 mL dose, sen-sucrose 02/14/2022 completed Not Available [facility] 09/17/2023 06:27:51 pneumococcal polysaccharide PPV23 08/11/2021 completed Not Available [facility] 2022 06:27:51 Past Encounters Encounter ID Performer Location Encounter Start Date Encounter Closed Date Diagnosis/Indication Diagnosis SNOMED-CT Code Diagnosis ICD10 Code [id number] CASE CISNEROS MD [address] [address] 10/13/2023 14:19:46 10/13/2023 15:30:19 Adult health examination 756180169 Z00.00 Diabetes m ellitus screening 731188245 Z13.1 History of hematuria 161 331557 Z87.448 Type 2 elen betes mellitus without complication 866987834 E11.9 Essential hypertension 31608267 I10 [id number] CASE CISNEROS MD [address] [address] 02/22/2024 09:43:44 02/22/2024 10:26:32 Acute low back pain 287413587 M54.50 [id number] CASE CISNEROS MD [address] [address] 04/12/2024 14:18:26 04/12/2024 15:01:50 Obesity 599912611 E66.9 Type 2 elen betes mellitus 65040546 E11.9 Health Concerns Section Related Observation LastModified by Organization Detai ls LastModified Time None Recorded Concern Status LastModified by Organization Details LastModified Time None Recorded Advance Directives Directive None Recorded Payers Encounter Date Sequence Insurance Name Policy Number Policy Mcclain Covered Member ID Mcclain Member ID Guarantor Name 10/13/2023 1 [place] [employer] Brice Lara [id number] Brice Lara 10/13/2023 2 [place] [facility] [id number] Brice Lara [id number] Brice Del Rio Jane 02/22/2024 1 [place] [facility] Brice Lara [id number] Brice Morrisseyder 02/22/2024 2 [place] [facility] [id number] Brice Lara [id number] Brice Del Rio Jane 04/12/2024 1 [place] [facility] Brice Lara [id number] Brice Morrisseyder 04/12/2024 2 [place] [facility] [id number] Brice Morrisseyder [id number] Brice Lara Notes Date Note Type Note Provider Name and Address Organization Details Recorded Time 10/13/2023 text/html HPI Notes: Jay king here for follow-up for his diabetes hypertension and other issues. He has annual eye exam last month, will get records. He mentions that about 6 weeks ago he had couple days of what appeared to be fairly dark hematuria cleared out stone. Other brief episodes minorly more recently. He has had no falls or injuries or trauma. Was not eating beets or other potential causes. No abdominal pain flank pain dysuria frequency. MD [address], [place], [address], [facility], [facility]. 10/19/2023 12:54:14 02/22/2024 text/html HPI Notes: Jay king in with concerns of some left sacroiliitis type pain. He has been gone about a week or so, has history of low back pain. This is worse than usual. Has tried nbtb-sed-qixlbky anti-inflammatorie s, more recently muscle relaxant was not helped. Pain is in the SI joint area down his leg. There is no weakness or numbness. No bowel or bladder changes. Very uncomfortable, enough to affect his sleeping and activities. No recent trauma, no recent illnesses. MD [address], [place], [address], [facility]. 02/25/2024 20:57:40
--- OUTSIDE RECORDS SUMMARY | 2024-08-01 11:29 | XMS_ITS | Encounter Summary ---
Author Organization [facility] Address [address] [place] [address] Care Team Providers Care Professor Of Religion Name Role Phone Unavailable Primary Care Provider Unavailabl e Encounter Details Date Type Department Care Team (Latest Contact Info) Description 08/17/2007 14:25 EDT Hospital Encounter [facility] [address] [place] [address] Attarian, Jade Porter MD [address] [id number] Discharge Disposition: Auto Discharge Social History Tobacco Use Types Packs/Day Years Used Date Smoking Tobacco: Never Assessed Sex and Gender Information Value Date Recorded Sex Assigned at Not on file Gender Identity Not on file Sexual Orientation Not on file documented as of this encounter Discharge Disposition Disposition Code Departure Means Destination Auto Discharge documented in this encounter Plan of Treatment Not on file documented as of this encounter Visit Diagnoses Not on filedocumented in this encounter
--- OUTSIDE RECORDS SUMMARY | 2024-08-01 11:29 | XMS_ITS | Encounter Summary ---
Author Organization [facility] Address [address] [place] [address] Care Team Providers Care Progressive Care Manager Name Role Phone Unavailable Primary Care Provider Unavailabl e Encounter Details Date Type Department Care Team (Late st Contact Info) Description 08/08/2012 Results Only [facility]- [facility] [phone] Soumya Bray MD [address] [address] Social History Tobacco Use Types Packs/Day Years Used Date Smoking Tobacco: Never Assessed Sex and Gender Information Value Date Recorded Sex Assigned at Not on file Gender Identity Not on file Sexual Orientation Not on file documented as of this encounter Plan of Treatment Not on file documented as of this encounter Procedures Procedure Name Priority Date/Time Associated Diagnosis Comments CYTOPATHOLOGY Routine 08/08/2012 0:00 EDT documented in this encounter Results * CYTOPATHOLOGY (08/08/2012 0:00 EDT) Pathology Report: CYTOPATHOLOGY REPORT Reports generated via electronic interface contain original data; however they are lacking the format of the original report. Caution should be taken when reading/interpreti ng unformatted reports. Name: ? YA REMY ? Accession #: ? [id number] : ? 1950 (Age: 62) ??M ?Collect Date: ? 08/08/2012 Location: ? [facility] ? Receive Date: ? 08/09/2012 Provider: ? SOUMYA BRAY MD Copy to: ? CYTOLOGIC DIAGNOSIS: ? Urine, voided, cytologic evaluation: 1. ?Negative for malignant cells. 2. ? Many degenerated urothelial cells. 3. ? Many crystals. Document reviewed and electronically signed by: ? NATHAN GLASER MD Report Date: ??08/09/2012 16:38 By the signature above, the attending physician certifies that he/she has personally conducted a gross and/or microscopic examination of the described specimens and rendered or confirmed the above diagnosis. Specimen Type: ? Urine, Voided Clinical History: ? Hematuria. ? Gross Description: ? One vial of Cytolyt was received and processed by selective cellular enhancement technique. ? End of Report [facility] 08/08/2012 08/09/2012 8:2 8 EDT Soumya Bray MD PATHOLOGY ORDERABLES [facility] [address] [place] [address] documented in this encounter Visit Diagnoses Not on filedocumented in this encounter
--- OUTSIDE RECORDS SUMMARY | 2024-08-01 11:29 | XMS_ITS | Encounter Summary ---
Author Organization [facility] Address [address] [place] [address] Care Team Providers Care Textile Supervisor Name Role Phone Yohan Darling MD Primary Care Provider [phone] Encounter Details Date Type Department Care Team (Late st Contact Info) Description 08/11/2021 Lab Requisition [facility] Pathology & Laboratory Medicine - [facility] [address] [place], [place] [address] Outr Resulting Lab, Provider Social History Tobacco [...] RNA BY PCR Routine 08/11/2021 8:50 EDT documented in this encounter Results * HEPATITIS C AB W REFLEX TO HCV RNA BY PCR (08/11/2021 8:50 EDT) Hep C Antibody Negative Negative 08/12/2021 10:04 EDT [facility] Blood VENOUS BLOOD / Unknown 08/11/2021 8:50 EDT 08/11/2021 21:37 EDT Provider Outr Resulting Lab CHEMISTRY & BLOOD GAS ORDERABLES [facility] [address] [place] [address] documented in this encounter Visit Diagnoses Not on filedocumented in this encounter Care Teams Textile Supervisor Relationship Specialty Start Date End Date Yohan Darling MD [address] [place] [address] PCP - General 08/10/12 documented as of this encounter
--- OUTSIDE RECORDS SUMMARY | 2024-08-01 11:29 | XMS_ITS | Encounter Summary ---
Author Organization [facility] Address [address] [place] [address] Care Team Providers Care Shade Hanger Name Role Phone Yohan Darling MD Primary Care Provider [phone] Encounter Details Date Type Department Care Team (Late st Contact Info) Description 06/02/2017 Results Only [facility]- [facility] [phone] Mian Cain, DO [address] [facility] [address] [address] [place] [address] Social History Tobacco Use Types Packs/Day Years Used Date Smoking Tobacco: Never Assessed Sex and Gender Information Value Date Recorded Sex Assigned at Not on file Gender Identity Not on file Sexual Orientation Not on file documented as of this encounter Plan of Treatment Not on file documented as of this encounter Procedures Procedure Name Priority Date/Time Associated Diagnosis Comments SURGICAL PATHOLOGY Routine 06/02/2017 9:34 EDT documented in this encounter Results * SURGICAL PATHOLOGY (06/02/2017 9:34 EDT) Pathology Report: SURGICAL PATHOLOGY REPORT Reports generated via electronic interface contain original data; however they are lacking the format of the original report. Caution should be taken when reading/interpret ing unformatted reports. Name: ? YA REMY ? Accession #: ? [id number] ? : ? 1950 (Age: 67) ??M ? Collect Date: ? 06/02/2017 ? Location: ? [facility] ? Receive Date: ? 06/03/2017 ? Provider: MIAN CAIN DO Copy to: YOHAN DARLING MD ? Final Pathologic Diagnosis: RECTUM, POLYP, BIOPSY: - Hyperplastic inflammatory polyp with mucosal prolapse. Document reviewed and electronically signed by: VALERY JULES MD Report ??Date: 06/04/2017 16:36 By the signature above, the attending physician certifies that he/she has personally conducted a gross and/or microscopic examination of the described specimens and rendered or confirmed the above diagnosis. Specimen(s) Received: Rectal polyp ? Clinical History: Screening Gross Description: ? Received in formalin labelled with proper patient identification (initials S, H) and rectal polyp is a single orona-white tissue fragment (0.2 x 0.2 x 0.1 cm). Submitted intact in 1. Tali Griffith 06/03/2017 10:36 AM End of Report [facility] 06/02/2017 9:34 EDT 06/03/2017 9:34 EDT Mian Cain DO PATHOLOGY ORDER SRIKANTH [facility] [address] [place] [address] documented in this encounter Visit Diagnoses Not on filedocumented in this encounter Care Teams Shade Hanger Relationship Specialty Start Date End Date Yohan Darling MD [address] [place] [address] PCP - General 08/10/12 documented as of this encounter
--- OUTSIDE RECORDS SUMMARY | 2024-08-01 11:29 | XMS_ITS | Encounter Summary ---
Author Organization [facility] Address [address] [place] [address] Care Team Providers Care International Logistics Analyst Name Role Phone Unavailable Primary Care Provider Unavailabl e Encounter Details Date Type Department Care Team (Late st Contact Info) Description 08/17/2007 Before PRISM Converted Visit ([facility]) [facility] - Maple conversion [address] [place] [address] Jade Sevilla MD [address] [facility] [address] [place] [phone] Social History Tobacco Use Types Packs/Day Years Used Date Smoking Tobacco: Never Assessed Sex and Gender Information Value Date Recorded Sex Assigned at Not on file Gender Identity Not on file Sexual Orientation Not on file documented as of this encounter Progress Notes * Jade Sevilla* MD MIKAELA - 09/16/2009 8681 EST PROGRESS/FOLLOWUP NOTE - 08/17/2007 [facility] REQUESTING PHYSICIAN Yohan Darling MD PROBLEM Mr. Lara returns to the sleep center's outpatient clinic for a followup. SUBJECTIVE Since last seen he underwent an overnight sleep study that revealed severe obstructive sleep apnea with an RDI of 48. He was stated on CPAP and CPAP of 8 controlled his obstructive sleep apnea completely. He has gotten his CPAP machine just recently but he has not used it because he does not know how to go about using it since it was just mailed to him and no one came and helped him set it up. Mr. Lara states that during the sleep study he tried both small nasal mask with a chin strap estela full face mask and the order was only for the small nasal mask because the leak on that mask was less. However, he thinks the full face would helphim better. GENERAL PHYSICAL EXAM Unchanged. ASSESSMENT Severe obstructive sleep apnea responded well to CPAP in the lab. PLAN 1. We fit him with a full face mask and gave him a full face mask to take home and alternate between that and the nasal mask. 2. We showed him how to use his machine and encouraged him to do so to prevent cardiac morbidity. 3. He will follow up with me on a p.r.n. basis. Signed by Jade Sevilla MD 08/22/2007 09:21 Jade Sevilla MD D: - Jade Sevilla MD - justin Job ID: [id number] Doc ID: [id number] cc: Yohan Darling MD documented in this encounter Plan of Treatment Not on file documented as of this encounter Visit Diagnoses Not on filedocumented in this encounter
--- OUTSIDE RECORDS SUMMARY | 2024-08-01 11:29 | XMS_ITS | Encounter Summary ---
Author Organization [facility] Address [address] [place] [address] Care Team Providers Care Redipper Name Role Phone Yohan Darling MD Primary Care Provider Encounter Details Date Type Department Care Team (Late st Contact Info) Description 06/22/2022 Lab Requisition [facility] Pathology & Laboratory Medicine - [facility] [address] [place] [address] Outr Resulting Lab, Provider Social History Tobacco [...] Procedure Name Priority Date/Time Associated Diagnosis Comments LYME AB Routine 06/22/2022 10:15 EDT documented in this encounter Results * LYME AB (06/22/2022 10:15 EDT) Lyme Ab Negative Negative 06/23/2022 10:[address] [facility] Blood VENOUS BLOOD / Unknown 06/22/2022 10:15 EDT 06/22/2022 21:20 EDT Provider Outr Resulting Lab IMMUNOLOGY A ND SEROLOGY ORDERABLES [facility] [address] [place] [address] documented in this encounter Visit Diagnoses Not on filedocumented in this encounter Care Teams Redipper Relationship Specialty Start Date End Date Yohan Darling MD [address] [place] [address] PCP - General 08/10/12 documented as of this encounter
--- OUTSIDE RECORDS SUMMARY | 2024-08-01 11:29 | XMS_ITS | Clinical Summary ---
Author Organization [facility] Address [address] [place] [address] Care Team Providers Care Development Engineer Name Role Phone Yohan Darling MD Primary Care Provider [phone] Social History Tobacco Use Types Packs/Day Years Used Date Smoking Tobacco: Never Assessed Sex and Gender Information Value Date Recorded Sex Assigned at Not on file Gender Identity Not on file Sexual Orientation Not on file Plan of Treatment Health Maintenance Due Date Last Done Comments RSV Immunization ( o r 60+ Years) (1 - 1-dose 60+ series) 2012 Fall Risk Screening 02/22/2017 COVID-19 Vaccine ( season) 2023 Hepatitis C Screen Completed 08/11/2021 Procedures Procedure Name Priority Date/Time Associated Diagnosis Comments HEPATITIS C AB W REFLEX TO HCV RNA BY PCR Routine 08/11/2021 8:50 EDT from Last 3 Months or Most Recently Relevant to Health Maintenance Results * HEPATITIS C AB W REFLEX TO HCV RNA BY PCR (08/11/2021 8:50 EDT) Hep C Antibody Negative Negative 08/12/2021 10:04 EDT [facility] Blood VENOUS BLOOD / Unknown 08/11/2021 8:50 EDT 08/11/2021 21:37 EDT Provider Outr Resulting Lab CHEMISTRY & BLOOD GAS ORDERABLES [facility] [address] [place] [address] from Last 3 Months or Most Recently Relevant to Health Maintenance Care Teams Development Engineer Relationship Specialty Start Date End Date Yohan Darling MD [address] [place] [address] PCP - General 08/10/12
--- OUTSIDE RECORDS SUMMARY | 2024-08-01 11:29 | XMS_ITS | Encounter Summary ---
Author Organization [facility] Address [address] [place] [address] Care Team Providers Care Glass Rolling Machine Operator Name Role Phone Yohan Darling MD Primary Care Provider [phone] Encounter Details Date Type Department Care Team (Late st Contact Info) Description 08/11/2021 Lab Requisition [facility] Pathology & Laboratory Medicine - [facility] [address], [place] [id number] Outr Resulting Lab, Provider Social History Tobacco [...] Procedure Name Priority Date/Time Associated Diagnosis Comments HIV 1/2 ANTIGEN AND ANTIBODY, 4TH GENERATION Routine 08/11/2021 8:50 EDT documented in this encounter Results * HIV 1/2 ANTIGEN AND ANTIBODY, 4TH GENERATION (08/11/2021 8:50 EDT) HIV 1 and 2 Antibody/p24 Antigen, 4th Generation Negative Negative 08/12/2021 10:29 EDT [facility] Comment: If acute HIV-1 infection is suspected in a high risk ??patient, submit plasma specimen for HIV-1 RNA quantitation test. Fourth Generation assay performed on the Siemens fflapaur. Blood VENOUS BLOOD / Unknown 08/11/2021 8:50 EDT 08/11/2021 21:37 EDT Provider Outr Resulting Lab IMMUNOLOGY A ND SEROLOGY ORDERABLES [facility] [address] [place] [address] documented in this encounter Visit Diagnoses Not on filedocumented in this encounter Care Teams Glass Rolling Machine Operator Relationship Specialty Start Date End Date Yohan Darling MD [address] [place] [address] PCP - General 08/10/12 documented as of this encounter
--- OUTSIDE RECORDS SUMMARY | 2024-08-01 11:30 | XMS_ITS | Data Portability ---
Author Organization [facility] Address [address] [place] [phone] Care Team Providers Care Director Of Strategic Partnerships Name Role Phone [facility] Primary Care Provider Assessment No assessment recorded. Plan of Treatment Reminders Order Date Submit Date Provider Last Modified By Organization Details Last Modified Time Details Appointments None recorded. Lab CBC w/ auto diff 2021 022 [facility] (Lab Orders), [address] [place] [address], [id number], 3 05:01:41 CMP, serum or plasma 2021 022 [facility] (Lab Orders), [address] [place] [address], [id number], 3 05:01:38 lyme disease igg+igm, serum, reflex western blot 2021 022 [facility] (Lab Orders), [address] [place] [address], [id number], 3 05:01:30 lyme disease C6 peptide Ab, serum 2021 022 [facility] (Lab Orders), [address] [place] [address], [id number], 3 05:01:33 anaplasma phagocytoph ilum DNA, qual, PCR, blood 2021 022 [facility] (Lab Orders), [address] [place] [address], [id number], 3 05:01:33 anaplasma phagocytoph ilum (hga/hge) igg+igm Ab, serum 2021 [facility] (Lab Orders), [address] [place] [address], [id number], 3 05:01:38 ehrlichiosi s antibody panel, serum 2021 [facility] (Lab Orders), [address] [place] [address], [id number], 3 05:01:30 Babesia microti DNA, qual PCR, blood 2021 [facility] (Lab Orders), [address] [place] [address], [id number], 3 05:01:33 ehrlichia chaffeensis DNA, qualitative , PCR, blood 2021 [facility] (Lab Orders), [address] [place] [address], [id number], 3 05:01:38 Referral None recorded. Procedures None recorded. Surgeries None recorded. Imaging None recorded. Medication Orders None recorded. Patient TargetsNo targets recorded. Patient InstructionsNo instructions recorded. Reason for Referral None Reported. Medical Equipment None Reported. Allergies No known drug allergies Medications Name Sig Start Date Stop Date Status Note LastModified by Organization Details LastModified Time metformin 1,000 mg tablet Take 1 tablet twice a day by oral route. active Not Available Not Available No t Available lisinopril active Not Available Not Av ailable Not Available Vitals Date Recorded Body weight Body mass index (BMI) Body height Respiratory rate Oxygen saturation Oxygen saturation in Arterial blood by Pulse oximetry Heart rate Body temperature Systolic blood pressure Diastolic blood pressure Systolic blood pressure Diastolic blood pressure Provider Name and Address Organization Details Last Updated DateTime 2 05304.7 7 g 27.6 kg/m2 175.26 cm 16 /min 98 % 98 % 67 /min 97.2 [degF] 152 mm[Hg] 92 mm[Hg] 152 mm[Hg] 86 mm[Hg] Roslyn Makeda, RN [facility] 14:18:08 Social History Question Answer Notes LastModified by Organizat ion Details LastModified Time Tobacco Smoking Status Never Smoker Roslyn Ashford RN null, [facility] 06/06/2022 14:13:39 What Is Your Level Of Alcohol Consumption? Occasional HTRN 06/06/23 Information not available 06/06/2022 Food Insecurity No HTRN 06/06/23 Information not available 06/06/2022 Financial Barriers No HTRN 06/06/23 Information not available 06/06/2022 What Was The Date Of Your Most Recent Tobacco Screening? 06/06/2022 HTRN 06/06/23 Information not available 06/06/2022 Do You Use Any Illicit Or Recreational Drugs? No HTRN 06/06/23 Information not available 06/06/2022 Have You Recently Traveled Abroad? No HTRN 06/06/23 Information not available 06/06/2022 Do You Or Have You Ever Used Any Other Forms Of Tobacco Or Nicotine? No Information not available 06/06/2022 Sex: Unknown Functional Status None recorded. Mental Status None recorded. Family History Nothing Reported. Medical History Condition Response Communication Need N Past Encounters Encounter ID Performer Location Encounter Start Date Encounter Closed Date Diagnosis/Indication Diagnosis SNOMED-CT Code Diagnosis ICD10 Code [id number] [facility] - [facility] [address] [place] [phone] 06/06/2022 13:16:01 06/06/2022 15:04:32 Tick bite [id number] W57.XXXA Health Concerns Section Related Observation LastModified by Organization Detai ls LastModified Time None Recorded Concern Status LastModified by Organization Details LastModified Time None Recorded Advance Directives Directive None Recorded Payers Encounter Date Sequence Insurance Name Policy Number Policy Mcclain Covered Member ID Mcclain Member ID Guarantor Name 06/06/2022 1 [place]ARE[place] - [employer] (MEDICARE) Brice Lara [id number] Brice Lara 06/06/2022 2 [place] [facility]) [id number] Brice Lara [id number] Brice Lara Notes Date Note Type Note Provider Name and Address Organization Details Recorded Time 06/06/2022 text/html HPI Notes: Covid-19 HPI Reported by patient. History 1) Are you fully vaccinated? Yes Are you boosted Yes; 2) Do you have a new fever, chills, nausea, vomiting, diarrhea, cough, sore throat, breathing problem, chest congestion or new or unusual fatigue body aches or loss of taste or smell? No; 3) Have you tested positive for COVID-19, either home or elsewhere? No If so when?; 4) Have you been in close contact or in the same household with a person that tested positive for COVID-19? No; 5) Have you been in quarantine for COVID-19? No Who gave direction? Notes: Reviewed pt discussion with intake nurse and confirmed Pt reports he he removed an engorged tick from his right upper back this afternoon. He states there is an area of redness around the bite site. [facility] CC: Tick Bite Tick embedded reported yes Exposure: he thinks several days but has no idea when he picked it up Engorged: yes, tick is 0.5 cm in length Rash: no Localized irritation: yes, trauma from removal noted Discussion regarding testing and one time use was discussed as well as appropriate length of time to wait. Lizet Anna, [facility]- [address], [place], [phone], [facility] 06/06/2022 15:10:59
--- OUTSIDE RECORDS SUMMARY | 2024-08-01 11:30 | XMS_ITS | Encounter Summary ---
Author Organization [facility] Address [address] [place] [address] Care Team Providers Care School Patrol Name Role Phone Unavailable Primary Care Provider Unavailabl e Encounter Details Date Type Department Care Team (Latest Contact Info) Description 07/31/2007 6:59 EDT - 07/31/2007 11:59 EDT Hospital Encounter [facility] [address] [place] [address] AttarianJade MD [address] [phone] Discharge Disposition: Auto Discharge Social History Tobacco [...]
--- OUTSIDE RECORDS SUMMARY | 2024-08-01 11:30 | XMS_ITS | Encounter Summary ---
Author Organization [facility] Address [address] [place] [address] Care Team Providers Care Certified Social Workers In Health Care Name Role Phone Unavailable Primary Care Provider Unavailabl e Encounter Details Date Type Department Care Team (Late st Contact Info) Description 07/31/2007 Before PRISM Converted Visit (Maple) [facility] - Maple conversion [address] [place] [address] Jade Sevilla MD [address] [facility] [address] [place] [phone] Social History Tobacco Use Types Packs/Day Years Used Date Smoking Tobacco: Never Assessed Sex and Gender Information Value Date Recorded Sex Assigned at Not on file Gender Identity Not on file Sexual Orientation Not on file documented as of this encounter Miscellaneous Notes * Study - Jade Sevilla* MD MIKAELA - 09/18/2009 9083 EST [facility] SERVICE DATE: 07/31/2007 IDENTIFICATION Last Name: Jane Study Number: [id number] First Name: Brice Recording Date: 07/31/2007 Date of : 1950 Height: 69?? Age: 57 years Weight: 227 lb Sex: M BMI: 33.5 INDICATION FOR STUDY Snoring and observed apneas STUDY RESULTS overnight sleep study consisted of left and right EOG, sub-mental EMG, left and right anterior tibialis EMG, central and occipital EEG, ECG waveform, airflow and respiratory effort assessment, oximetry and video monitoring. The baseline portion of the study started at PM and ended at 2:10:26 AM. The total time in bed was 142.0 minutes with a total sleep time of minutes. The patients sleep latency was 6.5 minute(s) with 12.5 minute(s) of wake time recorded after sleep onset. The sleep efficiency was 86.6%. Arousal index was 16.6/hour Total wake time during the night was 18.5 minute(s), which was 13.0% of the total recording time. The sleep stage percentages are as follows: N 1 13.0% N 2 70.9% N 3 0.0% R 16.1% The patient had a total of 99 respiratory event(s) for an RDI of 48.3 per hour. There were 31 obstructive apnea(s), 0 mixed apnea(s), 0 central apnea(s) and 68 hypopnea(s). 22 event(s) occurred in Stage REM, 77 event(s) were noted in NREM. The patient spent 66.5 minute(s) supine with a positional RDI of 67.6 event(s) per hour. A total of1.7 minute(s) were recorded in the left lateral body position with a positional RDI of 0.0event(s) per hour. A total of 66.5 were recorded in the left lateral body position with a positional RDI of 28.6 event(s) per hour. The average O2 saturation (SpO2) for the baseline portion of the night was 93%, with the minimum being at 72%. Saturation of less than 90% was recorded for 10.2% of the baseline portion of the night,less than 80% was recorded for 1.0% of the baseline portion of the night and less than 70% for 0.0%of the baseline portion of the night. 0.0the baseline portion of the night had invalid SpO2 readings. There were a total of 48 periodic myoclonic events, 0of which were associated with arousals, which calculated to 0.0 event(s) per hour during sleep. 20 spontaneous arousal(s) were noted with an indexof 16.6 arousal(s) per hour of sleep. CPAP: CPAP pressures of 5-13 cmof H2O were tried. CPAP of 8.0 cm completely controlled the sleep related breathing disorder. Patient spent 149.0 on CPAP of 8.0 cm, consolidated sleep appeared and thepatient spent time in both REM and NREM and in supine and lateral positions. At the optimal settingof 8 cm there were only rare respiratory events with an RDI of 3.5/hour. Sleep efficiency improved and was 91.3%. Mean O2 sat was 93% and zeeshan was 92%. IMPRESSION Abnormal PSG due to severe OSAS that responded well to CPAP. RECOMMENDATIONS patient on CPAP of 8 cm of H2O through the DME provider of his choice with a small comfort select mask and a carlos red chin strap. Patient will followup with me at [facility]. Signed by Jade Sevilla MD 08/18/2007 11:06 Jade Sevilla MD D: - German Sevilla MD A - justin Job ID: Document ID: [id number] cc: documented in this encounter Plan of Treatment Not on file documented as of this encounter Visit Diagnoses Not on filedocumented in this encounter
--- OUTSIDE RECORDS SUMMARY | 2024-08-01 11:30 | XMS_ITS | Encounter Summary ---
Author Organization [facility] Address [address] [place] [address] Care Team Providers Care Shop Girl Name Role Phone Unavailable Primary Care Provider Unavailabl e Encounter Details Date Type Department Care Team (Late st Contact Info) Description 06/30/2007 Before PRISM Converted Visit (Maple) [facility] - Maple conversion [address] [place] [address] Jade Sevilla MD [address] [facility] [address] [place] [phone] Social History Tobacco Use Types Packs/Day Years Used Date Smoking Tobacco: Never Assessed Sex and Gender Information Value Date Recorded Sex Assigned at Not on file Gender Identity Not on file Sexual Orientation Not on file documented as of this encounter Consult Notes * aJde Sevilla* MD MIKAELA - 09/14/2009 0939 EST CONSULTATION - 06/30/2007 [facility] PHYSICIAN Deepika Katz MD COMPLAINT Snoring and observed pauses and breathing for the past six to seven years. HISTORY OF PRESENT ILLNESS A 57-year-old man referred to the sleep centers outpatient clinic for a consultation by Dr. Katz. He states that he has been a loud nightly snorer for the past six to seven years and this is a severesocial problem interfering with this wifesleep. He has also been known to stop breathing in his sleep and gasps for air. He himself is not aware of waking up short of breath but he does experience nocturia, gets up at least twice a night to go to the bathroom and over the past six to seven years has experienced rare episodes of enuresis, maybe two or three times in that time period. He also gets up with a headache in the morning. He goes to bed between 1130 and midnight, falls asleep immediately and gets up between 6 and 7 on weekdays and 8 a.m. on weekends. He is reasonably refreshed when he gets up. He does not nap during the day. His [place] sleepiness scale score is somewhere between 9 and 10 depending on the day. He denies night sweats, or symptoms of restless legs. He denies cataplexy, sleep paralysis, hypnagogic hallucinations, sleepwalking, sleep talking, bruxism, dream enacting behavior, waking up with heartburn or dry mouth. PAST MEDICAL HISTORY None. ALLERGIES No known drug allergies. CURRENT MEDICATIONS None. SUBSTANCE USE Drinks 20 ounces of coffee and 20 ounces of tea a day, does not drink alcohol, does not smoke and does not abuse drugs. SOCIAL HISTORY He is a ramirez, is , has two adult children, one of whom lives at home. FAMILY HISTORY Obstructive sleep apnea in father and brother. REVIEW OF SYSTEMS General fatigue. Head, ENT, pulmonary, cardiac, GI, , neurological, rheumatological, vascular, endocrine, hematological, dermatological and psychiatric negative. GENERAL PHYSICAL EXAM Height 68?? inches, weight 227, blood pressure 128/90, pulse 85 beats per minute, O2 saturation 95%, neck size 16?? inches. Carotids normal pulses, no bruits. Heart normal S1S2 no murmurs. Lungs clear to auscultation. ENT exam oropharynx mallampati III to IV. NEUROLOGICAL EXAM ?? Mental status - alert and oriented times four, mental status intact to conversation ?? Cranial nerves - pupils equally reactive to light, no APD Extraocular movements - intact, no nystagmus Visual bansal - intact to confrontation Facial sensation - normal, no facial asymmetry Tongue - midline, palate is symmetrically elevated ?? Bulk and tone - normal, strength 5/5 ?? Deep tendon reflexes - 2+ all over ?? Sensory - normal to light touch all over ?? Coordination - normal finger to finger - finger to nose rapid alternating movements ?? Gait - steady, normal toe heel and tandem walking ASSESSMENT Obstructive sleep apnea is the most likely possibility. PLAN 1. Overnight sleep study. 2. Advised to lose some weight. 3. Advised of the risks of not treating ELDON including cardiopulmonary morbidity and mortality. 4. Advised not to drive when sleepy. Signed by Jade Sevilla MD 07/05/2007 09:20 Radha Sevilla MDARosa DiplomateHsultana Sevilla MD Jade Sevilla MD [facility] Diplomate - Jade Sevilla MD - justin Job ID: [id number] Doc ID: [id number] cc: Deepika Katz MD documented in this encounter Plan of Treatment Not on file documented as of this encounter Visit Diagnoses Not on filedocumented in this encounter
== END 2024-08-01 11:22 | disposition home or self-care (01) ==
LOC: LBO 11:26
PROVIDERS: PCP Family Medicine; Visit Provider Urology
DX: R97.20 Elevated prostate specific antigen [PSA] (principal)
CPT/HCPCS: 36415; 84153

== ENCOUNTER → 2024-11-17 08:32 | Outpatient (BNVA) | payer MEDICARE, BC, SELFPAY | PROVIDERS: PCP Family Medicine; Referring Provider Family Medicine; Visit Provider Urology | DX: N40.1 Benign prostatic hyperplasia with lower urinary tract symptoms (principal); R97.20 Elevated prostate specific antigen [PSA] | CPT/HCPCS: 99213 ==

== ENCOUNTER 2024-12-26 15:25 | Outpatient (REF) | payer MEDICARE, BC, SELFPAY ==
[2024-12-26 15:03] LABS: Abs Immature Grans 0.01 10^3/uL (0.0-0.06); Absolute Basophil Count 0.02 10^3/uL (0.0-0.2); Absolute Eosinophil Count 0.04 10^3/uL (0.0-0.7); Absolute Monocyte Count 0.65 10^3/uL (0.1-0.8); Absolute Neutrophil Count 2.29 10^3/uL (1.2-6.7); Basophils % 0.5 %; HCT 46.8 % (40.0-50.0); HGB 15.6 g/dL (13.5-17.5); Immature Grans % 0.2 %; Lymphocytes % 26.8 %; MCH 28.9 pg (27.0-33.0); MCHC 33.3 % (32.0-36.0); MCV 87 fL (80-95); MPV 10.5 fL (8.0-11.0); Monocytes % 15.8 %; Neutrophils % 55.7 %; Platelet Count 213 10^3/uL (130-400); RBC 5.39 10^6/uL (4.36-5.78); RDW 13.2 % (11.8-14.1); RDW-SD 41.8 fL; WBC 4.11 10^3/uL (4.4-10.8)
[2024-12-26 15:55] LABS: COMMENT (LAB VIEW ONLY) 82.01 mg/dL; Microalb ug/mg Crea 204.2 ug/mg Cr
[2024-12-26 15:56] LABS: ALT 31 U/L (16-63); AST 20 U/L (15-37); Albumin 3.5 g/dL (3.4-5.0); Alkaline Phosphatase 71 U/L (46-116); Anion Gap 11.2 mmol/L (3-11); BUN 18 mg/dL (7-18); Bilirubin, Total 1.36 mg/dL (0.2-1.0); CO2 25.8 mmol/L (21.0-32.0); CREATININE 0.8 mg/dL (0.70-1.30); Calcium 9.4 mg/dL (8.5-10.1); Chloride 104 mmol/L (98-107); Estimated GFR 94.03 (mL/min/1.73m2); Glucose 159 mg/dL (74-106); Potassium 4.6 mmol/L (3.5-5.1); Sodium 141 mmol/L (136-145); Total Protein 7.1 g/dL (6.4-8.2)
== END 2024-12-26 15:26 | disposition home or self-care (01) ==
LOC: NCHCN 15:25
PROVIDERS: PCP Family Medicine; Visit Provider Family Medicine
DX: I10 Essential (primary) hypertension (principal); E11.21 Type 2 diabetes mellitus with diabetic nephropathy
CPT/HCPCS: 80053; 82043; 82570; 85025

== ENCOUNTER 2025-05-10 02:47 | Outpatient (CLI) | payer MEDICARE, BC, SELFPAY ==
[2025-05-10 18:44] LABS: PSA, Diagnostic 3.4 ng/mL (<=6.5)
== END 2025-05-10 02:48 | disposition home or self-care (01) ==
LOC: LBO 02:47
PROVIDERS: PCP Family Medicine; Visit Provider Urology
DX: R97.20 Elevated prostate specific antigen [PSA] (principal)
CPT/HCPCS: 36415; 84153

== ENCOUNTER → 2025-05-18 08:25 | Outpatient (BNVA) | payer MEDICARE, BC, SELFPAY | PROVIDERS: PCP Family Medicine; Visit Provider Urology | DX: R97.20 Elevated prostate specific antigen [PSA] (principal) | CPT/HCPCS: 99214 ==